=== PATIENT | female | born 1990 | race Caucasian/White ===

== ENCOUNTER 2020-09-18 13:32 | Inpatient (IN) | payer BC, SELFPAY ==
[2020-09-18] VITALS (10 sets, daily range): BP systolic 96–123; BP diastolic 49–81; PULSE 77–123; RESP 14–18; TEMP 36.4–39.4; O2SAT 94–100; BMI 24.3
--- NOTE | ~2020-09-18 | CT_ITS ---
EXAMINATION: CT soft tissue neck w con EXAM DATE: 09/18/2020 15:48 INDICATION: Sore throat, right neck swelling. TECHNIQUE: Spiral CT of the neck was performed following intravenous injection of 75 mL Omnipaque 350 . Axial, coronal and sagittal images were reviewed. The dose-length product (DLP) for this examinat ion was 425.17 mGy-cm. The exposure was tailored according to patient size (auto mA exposure control ), and iterative reconstruction (ASIR) was used as additional dose reduction technique. There is no prior study for comparison. FINDINGS: There is abnormal low density widening of the prevertebral soft tissue, normal fat plane fr om the C2 to the C5 level, most wide at 3 where low density region measures 1.1 AP by 2.8 transverse centimeters. No enhancing rim to this. The fat planes surrounding the carotid sheaths are also indist inct. No rim enhancement, no organized abscess but patient is at risk for developing retropharyngeal abscess. Asymmetric tonsils with the right being larger, edematous but also without drainable fluid c ollection. The epiglottis is normal in thickness. Carotid and jugular veins enhance as expected, no t hrombus. Thyroid, submandibular, parotid glands are unremarkable. Mild reactive cervical lymphadenopa thy. Lung apices are clear. IMPRESSION: Significantly widened prevertebral fat plane from fluid, edema without rim-enhancing drai nable organized abscess. Deep fascial plane and mild right tonsillar edema. No jugular venous thrombo sis or epiglottis thickening. If patient has infection clinically, consider IV antibiotics. I discussed these findings with Shelley Mcmullen MD at 09/18/2020 16:09 DELINQUENT TAX COLLECTION ASSISTANT. Reviewed, dictated and finalized at location A. NQUENT TAX COLLECTION ASSISTANT IMPRESSION: Significantly widened prevertebral fat plane from fluid, edema with out rim-enhancing drainable organized abscess. Deep fascial plane and mild righ t tonsillar edema. No jugular venous thrombosis or epiglottis thickening. If pa javi has infection clinically, consider IV antibiotics. I discussed these findings with Shelley Mcmullen MD at 09/18/2020 16:09 DELINQUENT TAX COLLECTION ASSISTANT.
--- NOTE | 2020-09-18 15:15 | ED.GENADULT ---
HPI - General Adult General Chief complaint: Skin/Abscess/Foreign Body Stated complaint: abcess on neck? Time Seen by Provider: 09/18/20 14:57 Source: patient History of Present Illness HPI narrative: Patient is a 30 y/o female complaining of sorethroat start 3 days ago. She describes her pain as a soreness and rates it as 7/10. Swallowing makes it worse. She also has some right neck swelling and cough. She was seen at an urgent care clinic 2 days ago and had negative strep, [place], flu and COVID test. She was given steroids which did not help with her symptoms. She developed fever today. She was seen by PCP and sent here for further evaluation. Related Data Home Medications Medication Instructions Recorded Confirmed No Home Medications 09/18/20 09/18/20 Allergies Allergy/AdvReac Type Severity Reaction Status Date / Time No Known Allergies Allergy Verified 09/18/20 18:44 Review of Systems Constitutional: Constitutional: Denies chills, Reports fever(s), Denies headache(s) and Denies weakness Eyes: Eyes: Denies blurry vision ENT: Denies headache(s), Reports neck mass, Denies neck pain and Reports sore throat Cardiovascular: Cardiovascular: Denies chest pain and Denies dyspnea Respiratory: Respiratory: Reports cough and Denies dyspnea Gastrointestinal: Gastrointestinal: Denies abdominal pain, Denies diarrhea, Denies nausea and Denies vomiting Genitourinary: Genitourinary: Denies hematuria and Denies dysuria Musculoskeletal: Musculoskeletal: Denies back pain and Denies neck pain Neurologic: Denies headache(s) and Denies weakness [facility] Past Medical History Medical History Anemia Genital warts Well woman exam with routine gynecological exam Family History Family History (Updated 09/18/20 @ 18:58 by Chadd Whitlock RN) Sibling Hypertension Mother Hypertension Social History Social History Smoking status: Never smoker Second hand tobacco smoke exposure: No Alcohol intake: current Drinks per week: 1 Substance use: never Gender identity (if verbalized by the patient): Female Spiritual care concerns: No Exam Const: General: no acute distress and well developed Orientation/consciousness: oriented to person, oriented to place, oriented to time and patient oriented x3 HENMT: Head: normocephalic Ears: external ears normal General nose exam: Normal external nose present Throat: posterior oropharynx abnormal edema and erythema Eyes: General: appearance normal, both eyes and all related structures Conjunctivae: conjunctivae normal Neck: Neck: normal visual inspection and full ROM Chest: Chest palpation & inspection: normal inspection of the chest and no tenderness Resp: Effort & Inspection: normal respiratory effort Auscultation: clear to auscultation bilaterally Cardio: Rate: tachycardic Rhythm: regular rhythm GI: GI Palp: No abdominal tenderness and Yes Soft to palpation Skin: General skin exam: normal color and turgor normal Neuro: General: oriented to person, oriented to place, oriented to time and patient oriented x3 Cognition (Neuro): normal cognition Extrem: General: normal to inspection, full ROM and no pedal edema Psych: Appearance: grossly normal Mental Status: mental status grossly normal Affect: normal affect Course Consultations Consultation #1: Discussed with Dr. Garcia, who agrees to consult. Date: 09/18/20 Time: 16:28 Consultation #2: Discussed with CHUCK David, who agrees to admit. Date: 09/18/20 Time: 16:50 Vital Signs Vital signs: Vital Signs Temperature 38.0 C H 09/18/20 14:19 Pulse Rate 123 H 09/18/20 14:19 Respiratory Rate 18 09/18/20 14:19 Blood Pressure 123/81 09/18/20 14:19 Pulse Oximetry 100 09/18/20 14:19 Temperature 36.4 C 09/18/20 20:00 Pulse Rate 83 09/18/20 20:00 Respiratory Rate 18 09/18/20 20:00 Blood Pre
[2020-09-18 15:34] LABS: Basophils Absolute Auto 0.1 K/mm3 (0.0-0.1); Basophils Percent Auto 0.4 % (0.2-1.2); Hematocrit 39.2 % (37.0-47.0); Hemoglobin 13.4 g/dL (12.0-15.0); Immature Granulocyte Absolute 0.05 K/mm3 (0.00-0.031); Immature Granulocyte Percent A 0.4 % (0-0.5); Lymphocytes Absolute Auto 0.61 K/mm3 (0.9-3.2); Mean Corpuscular HGB Conc 34.2 g/dl (32-36); Mean Corpuscular Hemoglobin 29.2 pg (26-34); Mean Corpuscular Volume 85.4 fl (80-100); Mean Platelet Volume 9.8 fl (7.4-10.4); Monocytes Absolute Auto 0.3 K/mm3 (0.1-0.6); Monocytes Percent Auto 2.3 % (2.6-8.5); Neutrophils Absolute Auto 11.2 K/mm3 (1.3-6.7); Neutrophils Percent Auto 91.9 % (45.5-73.1); Platelet Count Result 203 k/mm3 (150-375); Red Blood Count 4.59 M/mm3 (4.2-5.4); Red Cell Distribution Width 12.4 % (11.5-14.5); White Blood Count 12.2 K/mm3 (4.5-10.0)
[2020-09-18 15:39] LABS: Add Urine Microscopic? YES; Appearance Urine Clear (Clear); Bacteria Urine Trace /hpf; Bilirubin Urine Negative (Negative); Blood Urine 1+ (Negative); Color Urine Yellow (Yellow); Glucose Urine UA Negative (Negative); Ketones Urine Trace mg/dL (Negative); Leukocyte Esterase Ur Negative LEU/UL (Negative); Mucus Urine Rare /lpf; Nitrate Urine Negative (Negative); Protein Urine 2+ mg/dL (Negative); Specific Grav Ur 1.017 (1.001-1.035); Squamous Epithelial Cell Urine Few /hpf (Few); Urobilinogen Urine Negative mg/dL (<2.0)
[2020-09-18 15:43] LABS: Estimated CRCL calculation 77 ml/min; Estimated Glomerular Filt Rate > 60
[2020-09-18 15:45] LABS: Alanine Aminotransferase 23 U/L (4-35); Albumin Level 4.3 g/dL (3.5-5.1); Alkaline Phosphatase 55 U/L (38-126); Anion Gap 11 mmol/L (8-16); Aspartate Amino Transferase 37 U/L (14-36); Bilirubin,Total 0.8 mg/dL (0.2-1.3); Blood Urea Nitrogen 14 mg/dL (7-17); Carbon Dioxide 24 mmol/L (22-30); Chloride 99 mmol/L (98-107); Estimated CRCL calculation 77 ml/min; Estimated Glomerular Filt Rate > 60; Glucose 145 mg/dL (65-105); Potassium 3.6 mmol/L (3.4-5.0); Sodium 134 mmol/L (137-145)
[2020-09-18] MEDS: SODIUM CHLORIDE 0.9% IV 1,000 ML 999 ML IV CONT (15:50)
[2020-09-18 15:54] LABS: Monoscreen Negative (Negative); Negative Monotest Control Negative (Negative); Positive Monotest Control Positive (Positive)
[2020-09-18] MEDS: AMPICILLIN SULB 3 GM/NS 100 ML 3 GM/100 ML VIAL IVPB ×2 (17:01→23:47)
--- NOTE | 2020-09-18 17:42 | WPDCN ---
Assessment and Plan Assessment and plan (1) Neck infection: Code(s): L08.9 - Local infection of the skin and subcutaneous tissue, unspecified Status: Acute Assessment and Plan: My impression is that the patient suffers from a deep neck space infection, clinically as well as radiographically in the right peritonsillar space as well as retropharyngeal space. The symptoms, white count, and ct are not completely consistent with a bacterial agent as the driving/sole source. I've added the patient on for the OR for Friday. Please keep her npo overnight. Recommend q8h steroids and at least IV unasyn overnight. Will reassess in the am. Please do not hesitate to call me or text me -with any questions/concern. [phone]. HPI Data of Consult Date/Time: 09/18/20 17:42 Requesting Physician: Deanna Bernal MD Primary Care Provider: Lori Greco, Consult Narrative Narrative: Ofelia Suero is a 30 year old female who presents with several days of neck pain and fever as well overall malaise. Strep negative. Monospot negative. No treatment prior to today other than oral steroids. CT personally reviewed with retropharyngeal edema/fluid which is non loculated. The right peritonsillar space also has fat stranding and edema again without loculations/fluid collection. Right supraclavicular edema as well. No thrombi. The patient reports no difficulty breathing but does report some difficulty turning her head. White count 12, elevated neutrophils. Confounding factors include migrating edema, bilateral radiographic lymphadenopathy with largely right sided symptoms, the patient reporting improvement as well as some more concerning symptoms which have developed in the past 24 hours including feve.r Review of Systems Constitutional: Constitutional: Denies fatigue, Denies fever(s) and Denies lethargy Eyes: Eyes: Denies blurry vision and Denies change in vision ENT: Reports as per HPI Cardiovascular: Cardiovascular: Denies chest pain Respiratory: Respiratory: Denies cough Endocrine: Endocrine: Denies fatigue Hematologic/Lymphatic: Hematologic/Lymphatic: Denies easy bleeding, Denies easy bruising and Denies lymphadenopathy Allergic/Immunologic: Allergic/Immunologic: Denies seasonal rhinorrhea PMFSH Past Medical History Medical History Anemia Genital warts Well woman exam with routine gynecological exam Social History Social History Gender identity (if verbalized by the patient): Female Meds Home Medications and Allergies Home Medications Medication Instructions Recorded Confirmed Type prednisolone 0 mg PO PER PKG DIR 09/18/20 09/18/20 History Allergies Allergy/AdvReac Type Severity Reaction Status Date / Time NKDA Allergy Mild none Uncoded 09/18/20 14:27 Vital Signs Vital Signs - 24 hr 09/18/20 14:19 09/18/20 16:05 09/18/20 16:55 Temperature 38.0 C H 39.4 C H Pulse Rate 123 H 110 H 113 H Respiratory Rate 18 18 16 Blood Pressure 123/81 112/79 109/70 Pulse Oximetry 100 100 98 Exam Const: General: cooperative, healthy appearing, comfortable, well developed and alert HENMT: Head: normal to inspection, normocephalic and atraumatic Ears: hearing grossly normal bilaterally, external ears normal, TM's normal bilaterally and EAC's normal General nose exam: Normal external nose present, Normal nares present, No nasal polyps present, Normal nasal mucous membranes and turbinates present and Normal septum present Face and sinus: normal facial exam Mouth: Yes lip normal, Yes tongue normal and Yes moist mucous membranes Teeth and gingiva: dentition normal and gingiva normal Other: Bilateral palpable jugulodigastric lymphadenopathy, more so on right, painful palpable right supraclavicular edema, overall more edematous on the right, floor of mouth soft, right tonsillar edema/erythema, possi
[2020-09-18 18:11] LABS: Lactic Acid Reflex 0.8 mmol/L (0.7-2.1)
--- NOTE | 2020-09-18 18:26 | PC.NURSE ---
dr payne stated to give the pt 2 1L bags of LR EVEN THOUGH BISHNU SAID TO GIVE 1900MLS
--- NOTE | 2020-09-18 18:57 | ADMGEN ---
This patient, Ofelia Suero, was admitted to IMU Room 201-01 on 09-18-2020 at 1830. Patient/family oriented to hospital policies and general routines including ID bracelet, bed and alarms, visiting hours, pain management, procedures, bathroom and other care routines, personal items, smoking policy, room service/diet, and visiting hours. Information on how to activate the Rapid Response Team has been discussed. Patient/Family are encouraged to report perceived risks to care and to ask questions if they do not understand what they are told or what they should do.
[2020-09-18] MEDS: SODIUM CHLORIDE 0.9% IV 1,000 ML 125 ML IV CONT (20:20)
[2020-09-19] VITALS (12 sets, daily range): BP systolic 98–112; BP diastolic 62–81; PULSE 77–107; RESP 14–22; TEMP 36.4–38.2; O2SAT 93–100
[2020-09-19] MEDS: HYDROmorphone HCL INJ (*CRX) 1 MG/ML SYR 0.5 MG IV PUSH ×3 (02:19→15:44)
--- NOTE | 2020-09-19 04:08 | PM.IMHP ---
H&P: HPI History of Present Illness Date/Time: 09/19/20 04:08 Chief Complaint: Neck swelling and sore throat for 3 days Narrative: This is a 30 year old female who presented to the hospital with a complaint of a right sided neck swelling and a sore throat. She started to have a sore throat 3 days ago. She was seen at the urgent care two days ago and had a rapid strep test, mono, and covid which were all negative. She was treated with steroids and today developed a fever. She was referred to the ER by her PCP. She has developed worsening right neck swelling and sporadic cough since this started. Her right neck swelling is tender. CT Neck was obtained which demonstrated significantly widened prevertebral fat plane from fluid, edema without rim-enhancing drainable organized abscess. Deep fascial plane and mild right tonsillar edema. No jugular venous thrombosis or epiglottis thickening. ENT, Dr. Garcia was consulted by ER provider and believes that the patient may be developing an abscess. IV ancef was started and we were asked to admit her to the hospital and prepare her for the OR tomorrow for possible incision and drainage. The patient denies any headache, nausea, vomiting, abdominal pain, chest pain, palpitations, shortness of breath, dysuria, or other wounds. Review of Systems Review of Systems: All systems reviewed & are unremarkable except as noted in HPI and below PMFSH Past Medical History Medical History Anemia Genital warts Well woman exam with routine gynecological exam Family History Family History Sibling Hypertension Mother Hypertension Social History Social History Smoking status: Never smoker Second hand tobacco smoke exposure: No Alcohol intake: current Drinks per week: 1 Substance use: never Gender identity (if verbalized by the patient): Female Spiritual care concerns: No Comments past surgical history is reviewed and noncontributory. Meds Home Medications and Allergies Home Medications Medication Instructions Recorded Confirmed Type No Home Medications 09/18/20 09/18/20 History Allergies Allergy/AdvReac Type Severity Reaction Status Date / Time No Known Allergies Allergy Verified 09/18/20 18:44 Vital Signs Vital Signs - 24 hr 09/18/20 14:19 09/18/20 16:05 09/18/20 16:55 Temperature 38.0 C H 39.4 C H Pulse Rate 123 H 110 H 113 H Respiratory Rate 18 18 16 Blood Pressure 123/81 112/79 109/70 Pulse Oximetry 100 100 98 09/18/20 17:59 09/18/20 18:28 09/18/20 18:45 Temperature 37.6 C 37.2 C Pulse Rate 98 87 Respiratory Rate 16 14 Blood Pressure 108/62 109/64 Pulse Oximetry 99 98 09/18/20 20:00 09/18/20 23:09 09/18/20 23:30 Temperature 36.4 C 36.6 C Pulse Rate 80 77 83 Respiratory Rate 18 18 Blood Pressure 98/49 L 96/55 L Pulse Oximetry 94 97 09/18/20 23:59 09/19/20 00:00 09/19/20 02:00 Temperature Pulse Rate 91 86 93 Respiratory Rate 18 Blood Pressure Pulse Oximetry Exam Const: General: cooperative, no acute distress, alert and awake Nutritional Appearance: well nourished Orientation/consciousness: patient oriented x3 HENMT: Head: normal to inspection General nose exam: Normal external nose present Face and sinus: normal facial exam Mouth: Yes Normal oral and palatal mucosa present and Yes other (Right sided tonsillar erythema and edema++ ) Eyes: Pupils: Equal, round and reactive pupils present EOM: EOMs intact bilaterally Neck: Neck: lymphadenopathy (supraclavicular b/l), no JVD and other (Right sided neck swelling, right neck tenderness to palpation+ ) Thyroid: thyroid normal Lymphatic: lymphadenopathy (Axillary++ ) Resp: Effort & Inspection: normal respiratory effort Auscultation: clear to auscultation bilaterally Cardio: Rate: regular
[2020-09-19] MEDS: SODIUM CHLORIDE 0.9% IV 1,000 ML 125 ML IV CONT (04:44)
[2020-09-19 05:12] LABS: Hematocrit 34.6 % (37.0-47.0); Hemoglobin 11.4 g/dL (12.0-15.0); Mean Corpuscular HGB Conc 32.9 g/dl (32-36); Mean Corpuscular Hemoglobin 28.2 pg (26-34); Mean Corpuscular Volume 85.6 fl (80-100); Mean Platelet Volume 10.6 fl (7.4-10.4); Platelet Count Result 195 k/mm3 (150-375); Red Blood Count 4.04 M/mm3 (4.2-5.4); Red Cell Distribution Width 12.4 % (11.5-14.5); White Blood Count 11.1 K/mm3 (4.5-10.0)
[2020-09-19 05:29] LABS: Anion Gap 3 mmol/L (8-16); Blood Urea Nitrogen 14 mg/dL (7-17); Calcium 7.8 mg/dL (8.4-10.2); Carbon Dioxide 25 mmol/L (22-30); Chloride 107 mmol/L (98-107); Estimated CRCL calculation 100 ml/min; Estimated Glomerular Filt Rate > 60; Glucose 150 mg/dL (65-105); Magnesium 2.1 mg/dL (1.6-2.3); Potassium 3.9 mmol/L (3.4-5.0); Sodium 135 mmol/L (137-145)
[2020-09-19] MEDS: AMPICILLIN SULB 3 GM/NS 100 ML 3 GM/100 ML VIAL IVPB ×2 (06:18→12:14)
[2020-09-19] MEDS: LACTATED RINGERS 1,000 ML 30 ML IV CONT (07:55)
--- NOTE | 2020-09-19 08:34 | PM.IMHP ---
H&P: HPI History of Present Illness Date/Time: 09/19/20 08:34 Chief Complaint: Tonsillitis, peritonsillar abscess, retropharyngeal abscess, Neck infection Narrative: Ofelia Suero is a 30 year old female who presents for planned surgical procedure. Overall patient feels slightly improved from yesterday's examination. No changes in medical history since yesterday. Review of Systems Constitutional: Constitutional: Denies fatigue, Denies fever(s) and Denies lethargy Eyes: Eyes: Denies blurry vision and Denies change in vision ENT: Reports as per HPI Cardiovascular: Cardiovascular: Denies chest pain Respiratory: Respiratory: Denies cough Endocrine: Endocrine: Denies fatigue Hematologic/Lymphatic: Hematologic/Lymphatic: Denies easy bleeding, Denies easy bruising and Denies lymphadenopathy Allergic/Immunologic: Allergic/Immunologic: Denies seasonal rhinorrhea PMFSH Past Medical History Medical History Anemia Genital warts Well woman exam with routine gynecological exam Family History Family History Sibling Hypertension Mother Hypertension Social History Social History Smoking status: Never smoker Second hand tobacco smoke exposure: No Alcohol intake: current Drinks per week: 1 Substance use: never Gender identity (if verbalized by the patient): Female Spiritual care concerns: No Meds Home Medications and Allergies Home Medications Medication Instructions Recorded Confirmed Type No Home Medications 09/18/20 09/18/20 History Allergies Allergy/AdvReac Type Severity Reaction Status Date / Time No Known Allergies Allergy Verified 09/18/20 18:44 Vital Signs Vital Signs - 24 hr 09/18/20 14:19 09/18/20 16:05 09/18/20 16:55 Temperature 38.0 C H 39.4 C H Pulse Rate 123 H 110 H 113 H Respiratory Rate 18 18 16 Blood Pressure 123/81 112/79 109/70 Pulse Oximetry 100 100 98 09/18/20 17:59 09/18/20 18:28 09/18/20 18:45 Temperature 37.6 C 37.2 C Pulse Rate 98 87 Respiratory Rate 16 14 Blood Pressure 108/62 109/64 Pulse Oximetry 99 98 09/18/20 20:00 09/18/20 23:09 09/18/20 23:30 Temperature 36.4 C 36.6 C Pulse Rate 80 77 83 Respiratory Rate 18 18 Blood Pressure 98/49 L 96/55 L Pulse Oximetry 94 97 09/18/20 23:59 09/19/20 00:00 09/19/20 02:00 Temperature Pulse Rate 91 86 93 Respiratory Rate 18 Blood Pressure Pulse Oximetry 09/19/20 04:00 09/19/20 06:00 Temperature 36.7 C Pulse Rate 94 102 H Respiratory Rate 22 H Blood Pressure 112/66 Pulse Oximetry 93 Exam Const: General: cooperative, healthy appearing, comfortable, well developed and alert HENMT: Head: normal to inspection, normocephalic and atraumatic Ears: hearing grossly normal bilaterally, external ears normal, TM's normal bilaterally and EAC's normal General nose exam: Normal external nose present, Normal nares present, No nasal polyps present, Normal nasal mucous membranes and turbinates present and Normal septum present Face and sinus: normal facial exam Mouth: Yes Normal oral and palatal mucosa present, Yes lip normal, Yes tongue normal, No oropharynx normal and Yes moist mucous membranes Teeth and gingiva: dentition normal and gingiva normal Throat: posterior oropharynx abnormal, tonisls abnormal and uvula not midline Other: Persistent right-sided tonsillar edema erythema exudates persistent right-sided peritonsillar edema persistent right-sided neck edema albeit improved from yesterday's examination mild or pharyngeal posterior fullness Eyes: General: appearance normal, both eyes and all related structures Periorbital: periorbital findings normal Eyelids: eyelids normal Conjunctivae: conjunctivae normal Sclera: sclerae normal Neck: Neck: not normal to visual inspection, limited ROM and lymphadenopathy n
--- NOTE | 2020-09-19 08:38 | WPDHPUPDATE1 ---
History and Physical Update Update Date/Time: 09/19/20 08:38 History and Physical has been reviewed, including an updated exam of the patient. There are NO changes in the patient's condition. Risks, benefits, and alternatives have been discussed and questions answered. Patient agrees to proceed with procedure.
--- NOTE | 2020-09-19 08:46 | WPDANESEPPF ---
Anes - Initial Pre Proc Eval Procedure: Operation Date: 09/19/20 09:00 Proposed Procedures p Transoral Incision And Drainage Sarahi-Tonsil Abscess - Perry Garcia MD Date/Time: 09/19/20 08:46 Surgeon: Deanna Bernal MD Pre Op Diagnosis: soft tissue neck infection Patient Data Age: 30 Gender: F Height: 5 ft 4 in Weight: 64 kg Last Vital Signs Temp 36.7 C 09/19/20 04:00 Pulse 102 H 09/19/20 06:00 Resp 22 H 09/19/20 04:00 BP 112/66 09/19/20 04:00 Pulse Ox 93 09/19/20 04:00 Allergies Allergy/AdvReac Type Severity Reaction Status Date / Time No Known Allergies Allergy Verified 09/18/20 18:44 Home Medications Medication Instructions Recorded Confirmed Type No Home Medications 09/18/20 09/18/20 History Laboratory Tests 09/18/20 09/18/20 09/18/20 15:27 15:27 15:27 WBC 12.2 K/mm3 H K/mm3 (4.5-10.0) RBC 4.59 M/mm3 M/mm3 (4.2-5.4) Hgb 13.4 g/dL g/dL (12.0-15.0) Hct 39.2 % % (37.0-47.0) MCV 85.4 fl fl (80-100) MCH 29.2 pg pg (26-34) MCHC 34.2 g/dl g/dl (32-36) RDW 12.4 % % (11.5-14.5) Plt Count 203 k/mm3 k/mm3 (150-375) MPV 9.8 fl fl (7.4-10.4) Immature Gran % (Auto) 0.4 % % (0-0.5) Neut % (Auto) 91.9 % H % (45.5-73.1) Lymph % (Auto) 5.0 % L % (18.3-44.2) Marshall % (Auto) 2.3 % L % (2.6-8.5) Eos % (Auto) 0.0 % % (0-4.4) Baso % (Auto) 0.4 % % (0.2-1.2) Lymph # (Auto) 0.61 K/mm3 L K/mm3 (0.9-3.2) Marshall # (Auto) 0.3 K/mm3 K/mm3 (0.1-0.6) Eos # (Auto) 0.0 K/mm3 K/mm3 (0-0.3) Baso # (Auto) 0.1 K/mm3 K/mm3 (0.0-0.1) Abs Immat Gran (auto) 0.05 K/mm3 H K/mm3 (0.00-0.031) Absolute Neuts (auto) 11.2 K/mm3 H K/mm3 (1.3-6.7) Absolute Nucleated RBC 0.0 K/mm3 K/mm3 (0.0-0.012) Nucleated RBC % 0.0 % % (0.0-0.2) Sodium 134 mmol/L L mmol/L (137-145) Potassium 3.6 mmol/L mmol/L (3.4-5.0) Chloride 99 mmol/L mmol/L (98-107) Carbon Dioxide 24 mmol/L mmol/L (22-30) Anion Gap 11 mmol/L mmol/L (8-16) BUN 14 mg/dL mg/dL (7-17) Creatinine 0.80 mg/dL mg/dL (0.7-1.0) Estim Creat Clear Calc 77 ml/min ml/min Estimated GFR > 60 (59 - ) Glucose 145 mg/dL H mg/dL (65-105) Lactic Acid Calcium 9.0 mg/dL mg/dL (8.4-10.2) Magnesium Total Bilirubin 0.8 mg/dL mg/dL (0.2-1.3) AST 37 U/L H U/L (14-36) ALT 23 U/L U/L (4-35) Alkaline Phosphatase 55 U/L U/L (38-126) Total Protein 8.0 g/dL g/dL (6.3-8.2) Albumin 4.3 g/dL g/dL (3.5-5.1) Urine Color Yellow (Yellow) Urine Appearance Clear (Clear) Urine pH 6.0 (5.0-9.0) Ur Specific [place] 1.017 (1.001-1.035) Urine Protein 2+ mg/dL H mg/dL (Negative) Urine Glucose (UA) Negative mg/dL mg/dL (Negative) Urine Ketones Trace mg/dL mg/dL (Negative) Ur Blood (Man) 1+ H (Negative) Urine Nitrate Negative (Negative) Urine Bilirubin Negative (Negative) Urine Urobilinogen Negative mg/dL mg/dL (<2.0) Leukocyte Esterase Rfl Negative BARRETT/UL BARRETT/UL (Negative) Urine RBC 3-5 /hpf H /hpf (0-2) Urine WBC 4-6 /hpf H /hpf Ur Squamous Epith Cells Few /hpf /hpf (Few) Urine Bacteria Trace /hpf /hpf Hyaline Casts 1-2 /lpf /lpf (None) Urine Mucus Rare /lpf /lpf Monoscreen 09/18/20 09/18/20 09/18/20 15:27 15:41 17:53 WBC RBC Hgb Hct MCV MCH MCHC RDW Plt Count MPV
[2020-09-19] MEDS: SCOPOLAMINE 1.5 MG PATCH TRANSDERM (08:50)
[2020-09-19] MEDS: fentaNYL CITRATE INJ (*CRX) 100 MCG/2 ML VIAL 25 MCG IV PUSH ×2 (09:45→09:48)
--- NOTE | 2020-09-19 09:47 | P.OP_ITS ---
Procedure Note - Detailed Date of procedure: 09/19/20 Pre-op diagnosis: soft tissue neck infection Tonsillitis Retropharyngeal abscess Post-op diagnosis: same Procedure performed: 1. Tonsillectomy 2. Trans oral I and D of retropharyngeal abscess Description of procedure: The patient was correctly identified and consent was verified in the preoperative holding area. The patient was then brought to the operating room and a time-out was performed. General anesthesia was induced and endotracheal tube was secured the patient's airway in the midline. Bed was then rotated. The patient was prepped and draped for the aforementioned procedures. McIvor mouth gag was placed in the oral cavity revealing the tonsils which were 2+ erythematous edematous and the right with exudates. The right was grasped with a curved Allis and dissected in extracapsular plane with Bovie electrocautery at a setting of 12. Hemostasis was achieved using suction Bovie at a setting of 15. Dishwater type fluid was noted in the right peritonsillar space. A similar procedure was performed on the left side with no dishwater fluid. These were sent for pathologic analysis. Again hemostasis was noted to be excellent. The Bovie was utilized to dissect transorally with a posterior oropharynx in the retropharyngeal space blunt dissection was used to widely expose the space again scant dishwater fluid was noted. Hemostasis was adeq uate. This marked the end of the procedure. Care of the patient was turned over to Anesthesiology. The McIvor mouth gag was then removed. Anesthesia: GLMA Surgeon: Perry Garcia MD Estimated blood loss (mL): 10 Pathology: yes Complications: No immediate complications Condition: stable Disposition: PACU
--- NOTE | 2020-09-19 09:50 | PM.PNGS ---
Progress Note: A&P Assessment and Plan (1) Retropharyngeal abscess: Code(s): J39.0 - Retropharyngeal and parapharyngeal abscess Status: Acute Assessment and Plan: From an otolaryngologic standpoint the patient is okay for discharge once stable/improving clinically and able to tolerate liquids. Recommend follow-up in 2 weeks with ENT. Recommend a 7 day course of Augmentin 875/125 b.i.d., and narcotic pain medicine on discharge. Please call with any questions and/or concerns. For [phone]. Earliest recommended discharge would be this evening, and very reasonable to keep overnight should the patient not feel improved, clinically worsen, or not be able to tolerate liquids. (2) Peritonsillar abscess: Code(s): J36 - Peritonsillar abscess Status: Acute (3) Tonsillitis: Code(s): J03.90 - Acute tonsillitis, unspecified Status: Acute (4) Neck infection: Code(s): L08.9 - Local infection of the skin and subcutaneous tissue, unspecified Status: Acute Subjective Subjective Date/Time Seen: 09/19/20 09:50 Objective Data Vital Signs Vital Signs: Vital Signs - 24 hr 09/18/20 14:19 09/18/20 16:05 09/18/20 16:55 Temperature 38.0 C H 39.4 C H Pulse Rate 123 H 110 H 113 H Respiratory Rate 18 18 16 Blood Pressure 123/81 112/79 109/70 Pulse Oximetry 100 100 98 09/18/20 17:59 09/18/20 18:28 09/18/20 18:45 Temperature 37.6 C 37.2 C Pulse Rate 98 87 Respiratory Rate 16 14 Blood Pressure 108/62 109/64 Pulse Oximetry 99 98 09/18/20 20:00 09/18/20 23:09 09/18/20 23:30 Temperature 36.4 C 36.6 C Pulse Rate 80 77 83 Respiratory Rate 18 18 Blood Pressure 98/49 L 96/55 L Pulse Oximetry 94 97 09/18/20 23:59 09/19/20 00:00 09/19/20 02:00 Temperature Pulse Rate 91 86 93 Respiratory Rate 18 Blood Pressure Pulse Oximetry 09/19/20 04:00 09/19/20 06:00 Temperature 36.7 C Pulse Rate 94 102 H Respiratory Rate 22 H Blood Pressure 112/66 Pulse Oximetry 93 Intake/Output Intake/Output: Intake & Output 09/16/20 09/17/20 09/18/20 09/19/20 23:59 23:59 23:59 23:59 Intake Total 2200 1265 Output Total 600 Balance 2200 665 Meds/Results Medications: Active Medications Generic Name Dose Route Start Last Admin Trade Name Freq PRN Reason Stop Dose Admin Dexamethasone Sodium Phosphate 10 mg 09/19/20 00:00 09/18/20 23:44 Dexamethasone Sod Phos Inj 10 Mg/Ml 1 Ml Vial IV PUSH 10 mg Q8H QUIN Administration Fentanyl Citrate 25 mcg 09/19/20 08:47 09/19/20 09:48 Fentanyl Citrate Inj (*Crx) 100 Mcg/2 Ml Vial IV PUSH 25 mcg Q2M PRN Administration Pain Hydromorphone HCl 0.5 mg 09/19/20 02:02 09/19/20 06:18 Hydromorphone Hcl Inj (*Crx) 1 Mg/Ml Syr IV PUSH 09/20/20 07:00 0.5 mg Q4H PRN Administration Pain Rated 7-10 Ampicillin Sodium/Sulbactam Sodium 3 gm in 100 mls @ 200 mls/hr 09/19/20 00:00 09/19/20 06:48 Unasyn 3 Gm/Ns 100 Ml IVPB Infused Q6H QUIN Infusion Acetaminophen 650 mg in 65 mls @ 260 mls/hr 09/18/20 17:05 09/19/20 09:34 Ofirmev 650 Mg Ivpb IVPB 09/19/20 17:06 Infused Q6H PRN Infusion Mild Pain (1-3) or Fever Sodium Chloride 1,000 mls @ 125 mls/hr 09/18/20 17:05 09/19/20 07:51 Normal Saline Iv IV CONT Not Given .Q8H QUIN Lactated Ringer's 1,000 mls @ 30 mls/hr 09/19/20 08:50 Lr - Lactated Ringers Iv IV CONT .Q24H QUIN Lactated Ringer's 1,000 mls @ 30 mls/hr 09/19/20 08:50 09/19/20 09:37 Lr - Lactated Ringers Iv IV CONT 30 mls/hr .Q24H QUIN Infusion Ondansetron HCl 4 mg 09/19/20 02:03 Ondansetron Inj 4 Mg/2 Ml Vial IV PUSH 09/19/20 11:00 Q6H PRN Nausea And Vomiting Ondansetron HCl 4 mg 09/19/20 08:47 Ondansetron Inj 4 Mg/2 Ml Vial IV PUSH ONCE PRN Nausea Oxycodone HCl 5 mg 09/19/20 08:47 Oxycodone (*Crx) 5 Mg/5 Ml Oral Soln Ir PO ONCE PRN Pain Radiology Results: ITS Impressi
--- NOTE | 2020-09-19 13:26 | PM.DS ---
DS: Admitting Diagnosis Admitting Diagnosis Admitting Diagnosis: Chief Complaint: Tonsillitis, peritonsillar abscess, retropharyngeal abscess, Neck infection DS: Discharge Diagnosis Discharge Diagnosis (1) Neck infection: Code(s): L08.9 - Local infection of the skin and subcutaneous tissue, unspecified Status: Acute Assessment and Plan: Continue IV antibiotics. Pain control as needed w/ IV narcotic medications. Blood cultures pending. Monitor vital signs. ENT has been consulted by ER provider and will evaluate the patient for possible incision and draining in am. (2) Tonsillitis: Code(s): J03.90 - Acute tonsillitis, unspecified Status: Acute Assessment and Plan: NPO overnight. throat culture pending. Continue steroid therapy. Continue ENT recommendations. (3) Sepsis: Qualifiers: Sepsis acute organ dysfunction status: unspecified Sepsis type: sepsis due to unspecified organism Qualified Code(s): A41.9 - Sepsis, unspecified organism Code(s): A41.9 - Sepsis, unspecified organism Status: Acute Assessment and Plan: Source of sepsis appears to be secondary to tonsillitis. Continue IV antibiotics. Continue IV fluids. Monitor vital signs. DS: Summary Hospital Course Reason for hospitalization: Chief Complaint: Tonsillitis, peritonsillar abscess, retropharyngeal abscess, Neck infection Narrative: Ofelia Suero is a 30 year old female who presents for planned surgical procedure. Overall patient feels slightly improved from yesterday's examination. No changes in medical history since yesterday. Hospital Course: Patient was seen by ENT and had tonsillectomy and drained abscess, patient was seen by the ENT post op and recommended to discharge the patient on oral abx and pain medication, patient is clinically stable, and wants to go home, will discharge today. Status at Discharge Functional status at discharge: independent ambulation Overall status at discharge: patient is back to baseline Time Spent with Patient Time attestation: Total time spent providing and/or coordinating discharge services: Patient was seen and examined at the time of the discharge Condition at discharge is stable Code status: Full code. Time spent preparing discharge summary, discharge medications, discussing discharge planning with continuous pillowcase cutter and patient is 30 minutes. Time spent: Less than 30 minutes Exam Narrative: Exam Narrative: Patient is comfortable, NAD HEENT: eyes are clear and none icteric LUNGS:CTA HEART: RR S1S2 ABD: BS+, Soft and nontender Lower extremities: no edema SKIN: nonjaundiced Neuro: grossly intact. DS: Data Data Completed and Pending Pending studies at discharge: Pending at discharge 09/19/20 09:11 Surgical [PTH] Routine Labs on day of discharge: Labs from last 24 hours 09/19/20 09/19/20 09/18/20 04:26 04:26 17:53 WBC 11.1 H RBC 4.04 L Hgb 11.4 L Hct 34.6 L MCV 85.6 MCH 28.2 MCHC 32.9 RDW 12.4 Plt Count 195 MPV 10.6 H Immature Gran % (Auto) Neut % (Auto) Lymph % (Auto) [place] % (Auto) Eos % (Auto) Baso % (Auto) Lymph # (Auto) [place] # (Auto) Eos # (Auto) Baso # (Auto) Abs Immat Gran (auto) Absolute Neuts (auto) Absolute Nucleated RBC Nucleated RBC % Sodium 135 L Potassium 3.9 Chloride 107 Carbon Dioxide 25 Anion Gap 3 L BUN 14 Creatinine 0.60 L Estim Creat Clear Calc 100 Estimated GFR > 60 Glucose 150 H Lactic Acid 0.8 Calcium 7.8 L Magnesium 2.1 Total Bilirubin AST ALT Alkaline Phosphatase Total Protein Albumin Urine Color Urine Appearance Urine pH Ur Specific [place] Urine Protein Urine Glucose (UA) Urine Ketones Ur Blood (Man) Urine Nitrate Urine Bilirubin Urine Urobilinogen Leukocyte Esterase Rfl Urine RBC Urine WBC Ur Squamous Epith Susannah
== END 2020-09-19 16:51 | disposition home or self-care (01) | DRG 854 ==
LOC: ANHED 14:57 → ANHIMU 17:45
PROVIDERS: Family Medicine; Otolaryngology; Admitting Provider Family Medicine; Emergency Provider Emergency Medicine; PCP Family Medicine; Visit Provider Family Medicine
PROC: 0CTPXZZ Resection of Tonsils, External Approach (ICD-10-PCS; principal; 2020-09-19 09:00)
DX: A41.9 Sepsis, unspecified organism; J39.0 Retropharyngeal and parapharyngeal abscess; J03.90 Acute tonsillitis, unspecified; L08.9 Local infection of the skin and subcutaneous tissue, unspecified
CPT/HCPCS: 36415; 70491; 80048; 80053; 81001; 81025; 83605; 83735; 85025; 85027; 86308; 87040; 87077; 87081; 87186; 87880; 88302; 96374; 96375; 99285; A9270; J0131; J0295; J0330; J1100; J1170; J2250; J2270; J2405; J2704; J2710; J3010; J7030; J7120; Q9967

== ENCOUNTER 2020-09-20 10:00 | Inpatient (IN) | payer BC, SELFPAY ==
[2020-09-20] VITALS (19 sets, daily range): BP systolic 99–115; BP diastolic 68–79; PULSE 63–82; RESP 16–37; TEMP 36.3–37.2; O2SAT 93–100; BMI 24.5
--- NOTE | ~2020-09-20 | XR_ITS ---
EXAMINATION: XR chest 1V portable DATE: 09/20/2020 10:43 INDICATION: Fever. TECHNIQUE: A single frontal view of the chest was obtained. COMPARISON: None. FINDINGS: The chest demonstrates clear lungs without pneumonia, pleural effusion, or pneumothorax. Th e heart size is normal. IMPRESSION: 1. No acute cardiopulmonary disease. Reviewed, dictated and finalized at location A. CREW SUPERVISOR
--- NOTE | ~2020-09-20 | CT_ITS ---
EXAMINATION: CT soft tiss nk chst ab pel w DATE: 09/20/2020 11:44 INDICATION: Fever. Abnormal liver function tests. TECHNIQUE: Computed tomography (CT) of the neck, chest, abdomen, and pelvis was performed with 100 mL Omnipaque 350 intravenous contrast. Automated exposure control and iterative reconstruction techniqu e were employed. The dose-length product was 1274.16 mGy-cm. COMPARISON: Neck CT 09/18/2020 FINDINGS: CT NECK: There is mucosal thickening in the nasopharynx, oropharynx, and hypopharynx. There is a smal l retropharyngeal effusion. There is gas in the left parapharyngeal fat and left fire manager space, co nsistent with recent surgery. The right jugular digastric node is mildly enlarged and measures 13 x 2 0 mm. There is edema in the right supraclavicular region. There is mild cervical spondylosis. CT CHEST: The lungs demonstrate minimal atelectasis. There are trace right and small left pleural eff usions. The heart size is normal. No pericardial effusion. There is mild thoracic spondylosis. CT ABDOMEN AND PELVIS: The liver, spleen, pancreas, adrenal glands, and kidneys are normal. There are no dilated loops of bowel. The appendix is normal. There is a small volume of pelvic ascites. There are no pathologically enlarged lymph nodes. The bones are unremarkable. IMPRESSION: 1. Mucosal thickening in the pharynx. Foci of gas in the left parapharyngeal and fire manager space fat , likely from recent surgery. Improved small retropharyngeal effusion. 2. Mildly enlarged high right internal jugular chain lymph node, likely reactive. 3. Small left pleural effusion. 4. Small volume of ascites. Reviewed, dictated and finalized at location A. RVISOR DIALS IMPRESSION: 1. Mucosal thickening in the pharynx. Foci of gas in the left parapharyngeal an d fire manager space fat, likely from recent surgery. Improved small retropharyng eal effusion. 2. Mildly enlarged high right internal jugular chain lymph node, likely reactiv e. 3. Small left pleural effusion. 4. Small volume of ascites.
--- NOTE | ~2020-09-20 | US_ITS ---
EXAMINATION: US venous doppler UE RT EXAM DATE: 09/21/2020 09:44 INDICATION: Right Arm edema, numbness. TECHNIQUE: Multiple grayscale, color flow, Doppler sonographic images of the right upper extremity ve ins obtained by technologist. Compression was performed where able. There is no prior study for treva caballero. FINDINGS: Right upper extremity: Jugular vein: ------------> Normal. Subclavian vein: --------> Normal. Axillary vein:------------> Normal. Brachial vein:-----------> Normal. Basilic vein: ------------> Normal. Cephalic vein: ----------> Normal. Radial vein: ------------> Normal. Ulnar vein: > Normal. IMPRESSION: No deep venous thrombosis of the right upper extremity. Reviewed, dictated and finalized at location A. SWARE FINISHER
--- NOTE | ~2020-09-20 | US_ITS ---
EXAMINATION: US abdomen limited DATE: 09/22/2020 09:37 INDICATION: Abnormal liver function tests. TECHNIQUE: Multiple grayscale and Doppler ultrasound images of the abdomen were obtained. COMPARISON: CT abdomen and pelvis 09/20/2020 FINDINGS: The visualized portions of the head and body of the pancreas are normal. The liver is will l without focal lesion. No liver surface nodularity. There is normal flow in main portal vein. The ga llbladder is normal in size. No gallstones or gallbladder wall thickening. There was no sonographic M urphy sign. The common duct is normal and measures 4 mm. IMPRESSION: 1. Normal right upper quadrant ultrasound. Reviewed, dictated and finalized at location A. RAL MANAGER
--- NOTE | 2020-09-20 10:25 | ED.FEVER ---
HPI - Fever General Chief Complaint: Fever Stated Complaint: post op fever Time Seen by Provider: 09/20/20 10:18 History of Present Illness HPI Narrative: She was admitted the hospital a few days ago with a fever and sore throat. She had tonsillectomy performed yesterday and was discharged. Since discharge she has continued to have a significant amount of pain. She feels as though her throat is very swollen and it is hard to breath. This morning she felt like she had a fever and her temp was 99.7. She got a call this morning say that her blood culture was positive and she should come back to the hospital. On chart review her blood culture was preliminarily positive for gram + cocci in clusters. Throat culture grew group A strep. I discussed her care with Dr. Garcia. He suggested CT and changing her antibiotics. Related Data Allergies Allergy/AdvReac Type Severity Reaction Status Date / Time No Known Allergies Allergy Verified 09/20/20 10:09 Review of Systems Review of Systems: All systems reviewed & are unremarkable except as noted in HPI and below Constitutional: Constitutional: Reports chills and Reports fever(s) ENT: Reports sore throat Cardiovascular: Cardiovascular: Denies chest pain Respiratory: Respiratory: Denies dyspnea Gastrointestinal: Gastrointestinal: Denies abdominal pain, Denies diarrhea and Reports nausea Genitourinary: Genitourinary: Denies hematuria and Denies dysuria Neurologic: Reports weakness PMFSH Past Medical History Medical History Anemia Genital warts Well woman exam with routine gynecological exam Family History Family History Sibling Hypertension Mother Hypertension Social History Social History Smoking status: Never smoker Second hand tobacco smoke exposure: No Alcohol intake: current Drinks per week: 1 Substance use: never Gender identity (if verbalized by the patient): Female Spiritual care concerns: No Exam Const: General: alert Orientation/consciousness: patient oriented x3 HENMT: Throat: posterior oropharynx abnormal erythema and exudates Eyes: Pupils: Equal, round and reactive pupils present Resp: Effort & Inspection: normal respiratory effort Auscultation: clear to auscultation bilaterally Cardio: Rate: regular rate Rhythm: regular rhythm GI: GI Palp: Yes Soft to palpation and No Tenderness to palpation present (GI) Skin: General skin exam: normal color Neuro: General: patient oriented x3, moves all extremities, no focal motor deficits and CN's II-XI intact bilaterally Extrem: General: normal to inspection Course Vital Signs Vital signs: Vital Signs Temperature 37.2 C 09/20/20 10:04 Pulse Rate 82 09/20/20 10:04 Respiratory Rate 18 09/20/20 10:04 Blood Pressure 103/79 09/20/20 10:04 Pulse Oximetry 99 09/20/20 10:04 Temperature 37.2 C 09/20/20 10:04 Pulse Rate 81 09/20/20 13:30 Respiratory Rate 21 H 09/20/20 13:30 Blood Pressure 102/69 09/20/20 12:30 Pulse Oximetry 95 09/20/20 13:30 MDM - Fever MDM Narrative Medical decision making narrative: Nothing acute on CT. Mild leukocytosis. I discussed findings with her and she does not feel comfortable going home. Differential Diagnosis Differential diagnosis: Likely community acquired pneumonia, sepsis and other (bacteremia) Medical Records Attestation: I reviewed the patient's medical records. Lab Data Attestation: I reviewed the patient's lab results. Lab results narrative: moderate elevation of liver enzymes Result diagrams: 09/20/20 10:34 09/20/20 10:34 Labs: Lab Results 09/20/20 09/20/20 09/20/20 Range/Units 10:34 10:34 10:34 WBC 13.4 H (4.5-10.0) K/mm3 RBC 4.19 L (4.2-5.4) M/mm3 Hgb 12.2 (12.0-15.0) g/dL Hct 35.9
[2020-09-20 10:46] LABS: Basophils Percent Auto 0.2 % (0.2-1.2); Hematocrit 35.9 % (37.0-47.0); Hemoglobin 12.2 g/dL (12.0-15.0); Immature Granulocyte Absolute 0.09 K/mm3 (0.00-0.031); Immature Granulocyte Percent A 0.7 % (0-0.5); Lymphocytes Absolute Auto 0.87 K/mm3 (0.9-3.2); Lymphocytes Percent Auto 6.5 % (18.3-44.2); Mean Corpuscular Hemoglobin 29.1 pg (26-34); Mean Corpuscular Volume 85.7 fl (80-100); Mean Platelet Volume 10.5 fl (7.4-10.4); Monocytes Absolute Auto 0.6 K/mm3 (0.1-0.6); Monocytes Percent Auto 4.8 % (2.6-8.5); Neutrophils Absolute Auto 11.8 K/mm3 (1.3-6.7); Neutrophils Percent Auto 87.8 % (45.5-73.1); Platelet Count Result 234 k/mm3 (150-375); Red Blood Count 4.19 M/mm3 (4.2-5.4); Red Cell Distribution Width 12.8 % (11.5-14.5); White Blood Count 13.4 K/mm3 (4.5-10.0)
[2020-09-20 10:55] LABS: INR 1.1; Prothrombin Time 14.3 Seconds (11.1-14.7)
[2020-09-20 10:56] LABS: Partial Thromboplastin Time 28.1 SECONDS (22.3-36.8)
[2020-09-20 10:59] LABS: Alanine Aminotransferase 504 U/L (4-35); Albumin Level 3.3 g/dL (3.5-5.1); Alkaline Phosphatase 121 U/L (38-126); Anion Gap 3 mmol/L (8-16); Aspartate Amino Transferase 683 U/L (14-36); Bilirubin,Total 1.1 mg/dL (0.2-1.3); Blood Urea Nitrogen 17 mg/dL (7-17); Calcium 8.3 mg/dL (8.4-10.2); Carbon Dioxide 30 mmol/L (22-30); Chloride 102 mmol/L (98-107); Estimated CRCL calculation 100 ml/min; Estimated Glomerular Filt Rate > 60; Glucose 121 mg/dL (65-105); Sodium 135 mmol/L (137-145)
[2020-09-20] MEDS: KETOROLAC 30 MG/ML VIAL (*BKC) IV PUSH (13:51)
[2020-09-20] MEDS: CLINDAMYCIN 600 MG/NS 50 ML 600 MG/50 ML PIGGYBACK 100 MG IVPB ×2 (14:15→21:46)
--- NOTE | 2020-09-20 15:09 | PM.IMHP ---
H&P: HPI History of Present Illness Date/Time: 09/20/20 15:09 Chief Complaint: Positive blood culture Narrative: Ofelia Suero is a 30 year old female who was discharged yesterday. She had a tonsillectomy yesterday by Dr. Garcia. Please see her procedure note. The patient was sent home on Augmentin and oxycodone. The patient stated she had a 99.7 temperature during the night. She was having difficulty swallowing. The patient stated that her throat felt more swollen and her neck felt more swollen. The patient stated that she was having difficulty opening her mouth. She had to cut her pain pills to get them down and she also had to cut her Augmentin in 4 different pieces and was still having difficulty getting the antibiotics down. She was nauseated as well. She was unable to eat or drink anything. She feels that her throat is more swollen and she feels like her throat was going to close up. Positive 1 bottle Gram-positive cocci i in clusters air aerobic bottle only. The ER physician notify Dr. Garcia who suggested that the patient be placed on clindamycin. She was given a dose of clindamycin in the emergency room. She is afebrile here. Her white count was noted to be 13.4 today however she did just get her tonsils removed yesterday. Her CT scan of the abdomen and pelvis today was read as. 1.Mucosal thickening in the pharynx. Foci of gas in the left parapharyngeal and application support developer space fat, likely from recent surgery. Improved small retropharyngeal effusion. 2. Mildly enlarged high right internal jugular chain lymph node, likely reactive. 3. Small left pleural effusion. 4. Small volume of ascites. Chest x-ray was read as nothing acute. The patient was given ketorolac in the emergency room as well as IV clindamycin. The patient is being admitted to inpatient status on the date of 09/20/2020. Review of Systems Review of Systems: All systems reviewed & are unremarkable except as noted in HPI and below Constitutional: Constitutional: Reports as per HPI and Reports no additional constitutional complaints Eyes: Eyes: Reports as per HPI and Reports no additional eye complaints ENT: Reports system reviewed and no additional complaints, except as documented and Reports Normal hearing present Cardiovascular: Cardiovascular: Reports no additional cardiovascular complaints Respiratory: Respiratory: Reports no additional respiratory complaints and Reports no additional respiratory complaints Gastrointestinal: Gastrointestinal: Reports as per HPI and Reports no additional gastrointestinal complaints Musculoskeletal: Musculoskeletal: Reports no additional musculoskeletal complaints Integumentary/Breasts: Skin/Breast: Reports system reviewed and no additional complaints, except as docu and Reports as per HPI Neurologic: Reports system reviewed and no additional complaints, except as documented, Reports as per HPI and Reports Normal hearing present Psychiatric: Psychiatric: Reports no additional psychiatric complaints and Reports as per HPI Endocrine: Endocrine: Reports no additional endocrine complaints Hematologic/Lymphatic: Hematologic/Lymphatic: Reports no additional hematologic/lymphatic complaints Allergic/Immunologic: Allergic/Immunologic: Reports no additional allergic/immunologic complaints PMFSH Past Medical History Medical History Anemia Genital warts Well woman exam with routine gynecological exam Surgical History Surgical History (Updated 09/20/20 @ 15:20 by Joann Browning NP) History of tonsillectomy 09/19/2020 Family History Family History Sibling Hypertension Mother Hypertension Social History Social History (Updated 09/20/20 @ 15:21 by Joann Browning NP) Social History: The patient is . 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 The patient is a full code. She does not have
--- NOTE | 2020-09-20 15:09 | PC.NURSE ---
This patient, Ofelia Suero, was admitted to Medical Room 348-01. Patient/family oriented to hospital policies and general routines including ID bracelet, bed and alarms, visiting hours, pain management, procedures, bathroom and other care routines, personal items, smoking policy, room service/diet, and visiting hours. Information on how to activate the Rapid Response Team has been discussed. Patient/Family are encouraged to report perceived risks to care and to ask questions if they do not understand what they are told or what they should do.
[2020-09-20] MEDS: LACTATED RINGERS 1,000 ML 125 ML IV CONT (15:32)
[2020-09-20] MEDS: HYDROmorphone HCL INJ (*CRX) 1 MG/ML SYR 0.5 MG IV PUSH (20:12)
[2020-09-21] MEDS: HYDROmorphone HCL INJ (*CRX) 1 MG/ML SYR 0.5 MG IV PUSH ×6 (00:42→21:08)
[2020-09-21] MEDS: LACTATED RINGERS 1,000 ML 125 ML IV CONT ×3 (00:46→21:08)
[2020-09-21 04:02] VITALS: BP 121/79; PULSE 72; RESP 18; TEMP 36.3; O2SAT 97
[2020-09-21] MEDS: diphenhydrAMINE HCl INJ 50 MG/ML VIAL 25 MG IV PUSH ×2 (05:33→16:13)
[2020-09-21] MEDS: CLINDAMYCIN 600 MG/NS 50 ML 600 MG/50 ML PIGGYBACK 100 MG IVPB ×3 (05:35→21:04)
[2020-09-21 06:00] LABS: Basophils Percent Auto 0.4 % (0.2-1.2); Eosinophils Percent Auto 0.3 % (0-4.4); Hematocrit 36.3 % (37.0-47.0); Hemoglobin 11.7 g/dL (12.0-15.0); Immature Granulocyte Absolute 0.14 K/mm3 (0.00-0.031); Immature Granulocyte Percent A 1.8 % (0-0.5); Lymphocytes Absolute Auto 1.47 K/mm3 (0.9-3.2); Lymphocytes Percent Auto 19.3 % (18.3-44.2); Mean Corpuscular HGB Conc 32.2 g/dl (32-36); Mean Corpuscular Hemoglobin 28.3 pg (26-34); Mean Corpuscular Volume 87.9 fl (80-100); Mean Platelet Volume 10.1 fl (7.4-10.4); Monocytes Absolute Auto 0.6 K/mm3 (0.1-0.6); Monocytes Percent Auto 7.5 % (2.6-8.5); Neutrophils Absolute Auto 5.4 K/mm3 (1.3-6.7); Neutrophils Percent Auto 70.7 % (45.5-73.1); Platelet Count Result 223 k/mm3 (150-375); Red Blood Count 4.13 M/mm3 (4.2-5.4); Red Cell Distribution Width 12.9 % (11.5-14.5); White Blood Count 7.6 K/mm3 (4.5-10.0)
[2020-09-21 06:18] LABS: Alanine Aminotransferase 454 U/L (4-35); Albumin Level 3.2 g/dL (3.5-5.1); Alkaline Phosphatase 124 U/L (38-126); Anion Gap 4 mmol/L (8-16); Aspartate Amino Transferase 325 U/L (14-36); Bilirubin,Total 0.8 mg/dL (0.2-1.3); Blood Urea Nitrogen 16 mg/dL (7-17); Calcium 7.9 mg/dL (8.4-10.2); Carbon Dioxide 33 mmol/L (22-30); Chloride 99 mmol/L (98-107); Estimated CRCL calculation 77 ml/min; Estimated Glomerular Filt Rate > 60; Glucose 98 mg/dL (65-105); Magnesium 1.9 mg/dL (1.6-2.3); Potassium 3.3 mmol/L (3.4-5.0); Sodium 136 mmol/L (137-145)
--- NOTE | 2020-09-21 08:36 | PM.PNGS ---
Progress Note: A&P Assessment and Plan (1) Retropharyngeal abscess: Code(s): J39.0 - Retropharyngeal and parapharyngeal abscess Status: Acute Assessment and Plan: The patient's white count has dropped and half which is both impressive and reassuring. That being said she continues to appear ill and have some right-sided peritonsillar edema which is concerning. If the patient desires and is drinking and mobile and overall feels okay I I think discharge this evening is acceptable. I would discharge her on 300 mg of clindamycin t.i.d.. The patient has my cell phone number and can form you have any and all changes or worsening. I would recommend follow-up next week with myself to keep an eye on her. I am concerned both radiographically as well as clinically that the right peritonsillar region may have a small abscess forming deeper than the peritonsillar space per se. That being said if the patient is afebrile and overall feeling improved this could be monitored at home. Please call me a before discharge and with any and all questions [phone] (2) Peritonsillar abscess: Code(s): J36 - Peritonsillar abscess Status: Acute (3) Tonsillitis: Code(s): J03.90 - Acute tonsillitis, unspecified Status: Acute (4) Neck infection: Code(s): L08.9 - Local infection of the skin and subcutaneous tissue, unspecified Status: Acute Subjective Subjective Date/Time Seen: 09/21/20 08:36 Objective Data Vital Signs Vital Signs: Vital Signs - 24 hr 09/20/20 10:04 09/20/20 10:17 09/20/20 10:18 Temperature 37.2 C Pulse Rate 82 69 73 Respiratory Rate 18 20 19 Blood Pressure 103/79 112/75 Pulse Oximetry 99 97 97 09/20/20 10:30 09/20/20 10:45 09/20/20 11:19 Temperature Pulse Rate 80 82 67 Respiratory Rate 37 H 21 H 18 Blood Pressure Pulse Oximetry 96 97 09/20/20 11:46 09/20/20 12:00 09/20/20 12:15 Temperature Pulse Rate 74 73 75 Respiratory Rate 22 H 16 17 Blood Pressure Pulse Oximetry 97 97 97 09/20/20 12:27 09/20/20 12:30 09/20/20 12:32 Temperature Pulse Rate 68 69 63 Respiratory Rate 25 H 22 H 24 H Blood Pressure 111/69 102/69 Pulse Oximetry 96 93 96 09/20/20 12:45 09/20/20 13:02 09/20/20 13:15 Temperature Pulse Rate 65 Respiratory Rate 20 Blood Pressure Pulse Oximetry 96 100 98 09/20/20 13:30 09/20/20 15:02 09/20/20 15:10 Temperature 36.3 C L Pulse Rate 81 65 72 Respiratory Rate 21 H 16 16 Blood Pressure 102/69 99/70 L Pulse Oximetry 95 97 100 09/20/20 20:00 09/21/20 04:02 Temperature 36.8 C 36.3 C L Pulse Rate 69 72 Respiratory Rate 18 18 Blood Pressure 115/68 121/79 Pulse Oximetry 98 97 Intake/Output Intake/Output: Intake & Output 09/18/20 09/19/20 09/20/20 09/21/20 23:59 23:59 23:59 23:59 Intake Total 820 1200 Output Total 600 400 Balance 220 800 Meds/Results Medications: Active Medications Generic Name Dose Route Start Last Admin Trade Name Freq PRN Reason Stop Dose Admin Diphenhydramine HCl 25 mg 09/20/20 14:20 09/21/20 05:33 Diphenhydramine Hcl Inj 50 Mg/Ml Vial IV PUSH 25 mg Q6H PRN Administration swelling Hydromorphone HCl 0.5 mg 09/20/20 14:19 09/21/20 03:45 Hydromorphone Hcl Inj (*Crx) 1 Mg/Ml Syr IV PUSH 0.5 mg Q3H PRN Administration pain7-10 Clindamycin/Sodium Chloride 600 mg in 50 mls @ 100 mls/hr 09/20/20 22:00 09/21/20 06:05 Clindamycin 600 Mg/Ns 50 Ml IVPB Infused Q8H QUIN Infusion Lactated Ringer's 1,000 mls @ 125 mls/hr 09/20/20 13:40 09/21/20 00:46 Lr - Lactated Ringers Iv IV CONT 125 mls/hr .Q8H QUIN Administration Ondansetron HCl 4 mg 09/20/20 14:20 Ondansetron Inj 4 Mg/2 Ml Vial IV PUSH Q4H PRN nause Radiology Results: ITS Impressions Chest X-Ray 09/20/20 10:44 IMPRESSION: 1. No acute cardiopulmonary disease. Neck/Chest/Abdomen/Pelvis CT 09/20/20 11:46 IMPRESSION: 1.
[2020-09-21] MEDS: POTASSIUM CHLORIDE 20 MEQ PACKET (FOR LIQUID) 40 MEQ PO (08:46)
[2020-09-21 11:28] VITALS: O2SAT 93
--- NOTE | 2020-09-21 12:28 | PM.IMPN ---
Progress Note: A&P Assessment and Plan (1) Bacteremia: Code(s): R78.81 - Bacteremia Status: Acute Assessment and Plan: The patient did have tonsillectomy yesterday. Her leukocytosis is mild. However she did just have surgery yesterday. She has some mucosal thickening in the pharynx and focal gas of the left parapharyngeal and windows server engineer space fat but most likely is due to her recent surgery. The patient had been on Augmentin at home. She was having difficulty swallowing the pill even though she cut it in [address] Garcia had been notified and suggested the patient be on clindamycin. Will continue with clindamycin IV. I suggested that the patient use ice pack on her neck area that is swollen. We can also do some Benadryl as well. The patient states that she feels she has a lot of drainage in the back of her throat. We can do a clear liquid diet. Continue with IV fluids. Repeat blood cultures. The most recent blood culture had 1 bottle with the gram positive cocci in clusters in the aerobic bottle. This could possibly be contaminated but nonetheless will continue with the clindamycin. Blood cultures repeated. The patient is afebrile at this time. However she stated she had a 99.7 temperature at home. Continue with IV Tylenol and Dilaudid. 09/21/20 12:28 patient is a 30-year-old female status post tonsillectomy and I&D peritonsillar abscess on 09/18/20 after the surgery patient was seen by her ENT and patient was clinically stable and discharged home on Augmentin 875 twice a 7 days, however patient presented emergency department on 09/20 with complaint of fever and pain was getting worse patient was admitted for IV antibiotics and IV clindamycin was started, today patient is the pain is still persisting denies any fever or chills, patient 1 blood culture is growing coagulase negative staph aureus sensitivities pending will consult Dr. arriaza for further recommendation, (2) Retropharyngeal abscess: Code(s): J39.0 - Retropharyngeal and parapharyngeal abscess Status: Acute Assessment and Plan: Dr. Garcia has been consulted. Further recommendations per Dr. Garcia. Subjective Date/time seen: 09/21/20 12:28 patient is a 30-year-old female status post tonsillectomy and I&D peritonsillar abscess on 09/18/20 after the surgery patient was seen by her ENT and patient was clinically stable and discharged home on Augmentin 875 twice a 7 days, however patient presented emergency department on 09/20 with complaint of fever and pain was getting worse patient was admitted for IV antibiotics and IV clindamycin was started, today patient is the pain is still persisting denies any fever or chills, patient 1 blood culture is growing coagulase negative staph aureus sensitivities pending will consult Dr. arriaza for further recommendation, Review of Systems Review of Systems: All systems reviewed & are unremarkable except as noted in HPI and below Constitutional: Constitutional: Reports as per HPI and Reports no additional constitutional complaints Exam Narrative: Exam Narrative: Patient appears in pain and ill. Patient is comfortable, NAD HEENT: eyes are clear and none icteric LUNGS:CTA HEART: RR S1S2 ABD: BS+, Soft and nontender Lower extremities: no edema SKIN: nonjaundiced Neuro: grossly intact. Objective Data Vital Signs Vital Signs: Vital Signs - 24 hr 09/20/20 12:30 09/20/20 12:32 09/20/20 12:45 Temperature Pulse Rate 69 63 65 Respiratory Rate 22 H 24 H 20 Blood Pressure 102/69 Pulse Oximetry 93 96 96 09/20/20 13:02 09/20/20 13:15 09/20/20 13:30 Temperature Pulse Rate 81 Respiratory Rate 21 H Blood Pressure Pulse Oximetry 100 98 95 09/20/20 15:02 09/20/20 15:10 09/20/20 20:00 Temperature 97.3 F L 98.3 F Pulse Rate 65 72 69 Respiratory Rate 16 16 18 Blood Pressure 102/69 99/70 L 115/68 Pulse Oximetry 97 100 98 09/21/20 04:02 09/21/20 11:28 Temperatur
[2020-09-21 14:00] VITALS: BP 121/74; PULSE 74; RESP 18; TEMP 36.8; O2SAT 97
[2020-09-21 21:01] VITALS: BP 118/66; PULSE 70; RESP 16; TEMP 36.8; O2SAT 100
[2020-09-22] MEDS: HYDROmorphone HCL INJ (*CRX) 1 MG/ML SYR 0.5 MG IV PUSH ×3 (00:57→11:30)
[2020-09-22] MEDS: CLINDAMYCIN 600 MG/NS 50 ML 600 MG/50 ML PIGGYBACK 100 MG IVPB ×2 (05:25→13:51)
[2020-09-22] MEDS: LACTATED RINGERS 1,000 ML 125 ML IV CONT (05:29)
[2020-09-22 06:00] VITALS: BP 117/78; PULSE 90; RESP 17; TEMP 36.6; O2SAT 97
[2020-09-22 07:26] LABS: Hematocrit 36.3 % (37.0-47.0); Hemoglobin 11.7 g/dL (12.0-15.0); Mean Corpuscular HGB Conc 32.2 g/dl (32-36); Mean Corpuscular Hemoglobin 27.8 pg (26-34); Mean Corpuscular Volume 86.2 fl (80-100); Mean Platelet Volume 9.3 fl (7.4-10.4); Platelet Count Result 227 k/mm3 (150-375); Red Blood Count 4.21 M/mm3 (4.2-5.4); Red Cell Distribution Width 12.7 % (11.5-14.5); White Blood Count 6.7 K/mm3 (4.5-10.0)
--- NOTE | 2020-09-22 07:50 | PM.PNGS ---
Progress Note: A&P Assessment and Plan (1) Retropharyngeal abscess: Code(s): J39.0 - Retropharyngeal and parapharyngeal abscess Status: Acute Assessment and Plan: Patient seen this a.m.. Continued improvement in appearance. White count continues to drop. Pre cancino blood cultures negative. Okay for discharge if patient is agreeable and primary team agreeable. Recommend 300 mg of clindamycin t.i.d. for 7 days. The patient should follow up with me in 1-2 weeks for continued monitoring/evaluation. Typical pain medicine regimen includes 5 mg of oxycodone q.8 hours if needed. Tylenol and ibuprofen okay limits strenuous activity for 1 week. Please call with any questions and/or concerns for [phone]. (2) Peritonsillar abscess: Code(s): J36 - Peritonsillar abscess Status: Acute (3) Tonsillitis: Code(s): J03.90 - Acute tonsillitis, unspecified Status: Acute (4) Neck infection: Code(s): L08.9 - Local infection of the skin and subcutaneous tissue, unspecified Status: Acute Subjective Subjective Date/Time Seen: 09/22/20 07:50 Objective Data Vital Signs Vital Signs: Vital Signs - 24 hr 09/21/20 11:28 09/21/20 14:00 09/21/20 21:01 Temperature 36.8 C 36.8 C Pulse Rate 74 70 Respiratory Rate 18 16 Blood Pressure 121/74 118/66 Pulse Oximetry 93 97 100 09/22/20 06:00 Temperature 36.6 C Pulse Rate 90 Respiratory Rate 17 Blood Pressure 117/78 Pulse Oximetry 97 Intake/Output Intake/Output: Intake & Output 09/19/20 09/20/20 09/21/20 09/22/20 23:59 23:59 23:59 23:59 Intake Total 820 3550 1400 Output Total 600 1650 700 Balance 220 1900 700 Meds/Results Medications: Active Medications Generic Name Dose Route Start Last Admin Trade Name Freq PRN Reason Stop Dose Admin Diphenhydramine HCl 25 mg 09/20/20 14:20 09/21/20 16:13 Diphenhydramine Hcl Inj 50 Mg/Ml Vial IV PUSH 25 mg Q6H PRN Administration swelling Hydromorphone HCl 0.5 mg 09/20/20 14:19 09/22/20 05:25 Hydromorphone Hcl Inj (*Crx) 1 Mg/Ml Syr IV PUSH 0.5 mg Q3H PRN Administration pain7-10 Clindamycin/Sodium Chloride 600 mg in 50 mls @ 100 mls/hr 09/20/20 22:00 09/22/20 07:15 Clindamycin 600 Mg/Ns 50 Ml IVPB Infused Q8H QUIN Infusion Lactated Ringer's 1,000 mls @ 125 mls/hr 09/20/20 13:40 09/22/20 05:29 Lr - Lactated Ringers Iv IV CONT 125 mls/hr .Q8H QUIN Administration Ondansetron HCl 4 mg 09/20/20 14:20 Ondansetron Inj 4 Mg/2 Ml Vial IV PUSH Q4H PRN nause Radiology Results: ITS Impressions Chest X-Ray 09/20/20 10:44 IMPRESSION: 1. No acute cardiopulmonary disease. Neck/Chest/Abdomen/Pelvis CT 09/20/20 11:46 IMPRESSION: 1. Mucosal thickening in the pharynx. Foci of gas in the left parapharyngeal and naturopathic physician space fat, likely from recent surgery. Improved small retropharyngeal effusion. 2. Mildly enlarged high right internal jugular chain lymph node, likely reactive. 3. Small left pleural effusion. 4. Small volume of ascites. Venous Doppler Study 09/21/20 09:51 IMPRESSION: No deep venous thrombosis of the right upper extremity. Labs Labs: Laboratory Results - last 24 hr 09/22/20 07:15 WBC 6.7 RBC 4.21 Hgb 11.7 L Hct 36.3 L MCV 86.2 MCH 27.8 MCHC 32.2 RDW 12.7 Plt Count 227 MPV 9.3 Quality VTE Prophylaxis VTE prophylaxis: mechanical ordered
[2020-09-22 09:05] LABS: Hepatitis B Surface Antigen Negative (Negative)
[2020-09-22 09:11] LABS: HAV RESULT Negative (Negative); Hepatitis B Core IgM Result Negative (Negative)
[2020-09-22 09:22] LABS: Hepatitis C Virus Antibody Negative (Negative)
--- NOTE | 2020-09-22 13:41 | P.PNINF_ITS ---
Progress Note: A&P Assessment and Plan (1) Bacteremia: Code(s): R78.81 - Bacteremia Status: Acute Assessment and Plan: CNSS bacteremia, skin contaminant REC Agree with antibiotic plan per ENT. Needs no Rx for the bacteremia Subjective Date/time seen: 09/22/20 13:41 Objective Data Vital Signs Vital Signs: Vital Signs - 24 hr 09/21/20 14:00 09/21/20 21:01 09/22/20 06:00 Temperature 36.8 C 36.8 C 36.6 C Pulse Rate 74 70 90 Respiratory Rate 18 16 17 Blood Pressure 121/74 118/66 117/78 Pulse Oximetry 97 100 97 Intake/Output Intake/Output: Intake & Output 09/19/20 09/20/20 09/21/20 09/22/20 23:59 23:59 23:59 23:59 Intake Total 820 3550 1880 Output Total 600 1650 700 Balance 220 1900 1180 Meds/Results Medications: Active Medications Generic Name Dose Route Start Last Admin Trade Name Freq PRN Reason Stop Dose Admin Diphenhydramine HCl 25 mg 09/20/20 14:20 09/21/20 16:13 Diphenhydramine Hcl Inj 50 Mg/Ml Vial IV PUSH 25 mg Q6H PRN Administration swelling Hydromorphone HCl 0.5 mg 09/20/20 14:19 09/22/20 11:30 Hydromorphone Hcl Inj (*Crx) 1 Mg/Ml Syr IV PUSH 0.5 mg Q3H PRN Administration pain7-10 Clindamycin/Sodium Chloride 600 mg in 50 mls @ 100 mls/hr 09/20/20 22:00 09/22/20 07:15 Clindamycin 600 Mg/Ns 50 Ml IVPB Infused Q8H QUNI Infusion Lactated Ringer's 1,000 mls @ 125 mls/hr 09/20/20 13:40 09/22/20 05:29 Lr - Lactated Ringers Iv IV CONT 125 mls/hr .Q8H QUIN Administration Ondansetron HCl 4 mg 09/20/20 14:20 Ondansetron Inj 4 Mg/2 Ml Vial IV PUSH Q4H PRN nause Radiology Results: ITS Impressions Chest X-Ray 09/20/20 10:44 IMPRESSION: 1. No acute cardiopulmonary disease. Neck/Chest/Abdomen/Pelvis CT 09/20/20 11:46 IMPRESSION: 1. Mucosal thickening in the pharynx. Foci of gas in the left parapharyngeal and bunch breaker machine operator space fat, likely from recent surgery. Improved small retropharyngeal effusion. 2. Mildly enlarged high right internal jugular chain lymph node, likely reactive. 3. Small left pleural effusion. 4. Small volume of ascites. Venous Doppler Study 09/21/20 09:51 IMPRESSION: No deep venous thrombosis of the right upper extremity. Abdomen Ultrasound 09/22/20 09:38 IMPRESSION: 1. Normal right upper quadrant ultrasound. Labs Labs: Laboratory Results - last 24 hr 09/22/20 09/22/20 07:15 07:15 WBC 6.7 RBC 4.21 Hgb 11.7 L Hct 36.3 L MCV 86.2 MCH 27.8 MCHC 32.2 RDW 12.7 Plt Count 227 MPV 9.3 Hepatitis A IgM Ab Negative Hep Bs Antigen Negative Hep B Core IgM Ab Negative Hepatitis C Ab Screen Negative
[2020-09-22 14:00] VITALS: BP 123/78; PULSE 72; RESP 16; TEMP 36.1; O2SAT 100
--- NOTE | 2020-09-22 15:04 | PM.IMPN ---
Progress Note: A&P Assessment and Plan (1) Bacteremia: Code(s): R78.81 - Bacteremia Status: Acute Assessment and Plan: The patient did have tonsillectomy yesterday. Her leukocytosis is mild. However she did just have surgery yesterday. She has some mucosal thickening in the pharynx and focal gas of the left parapharyngeal and vp packaging space fat but most likely is due to her recent surgery. The patient had been on Augmentin at home. She was having difficulty swallowing the pill even though she cut it in [address] Garcia had been notified and suggested the patient be on clindamycin. Will continue with clindamycin IV. I suggested that the patient use ice pack on her neck area that is swollen. We can also do some Benadryl as well. The patient states that she feels she has a lot of drainage in the back of her throat. We can do a clear liquid diet. Continue with IV fluids. Repeat blood cultures. The most recent blood culture had 1 bottle with the gram positive cocci in clusters in the aerobic bottle. This could possibly be contaminated but nonetheless will continue with the clindamycin. Blood cultures repeated. The patient is afebrile at this time. However she stated she had a 99.7 temperature at home. Continue with IV Tylenol and Dilaudid. 09/21/20 12:28 patient is a 30-year-old female status post tonsillectomy and I&D peritonsillar abscess on 09/18/20 after the surgery patient was seen by her ENT and patient was clinically stable and discharged home on Augmentin 875 twice a 7 days, however patient presented emergency department on 09/20 with complaint of fever and pain was getting worse patient was admitted for IV antibiotics and IV clindamycin was started, today patient is the pain is still persisting denies any fever or chills, patient 1 blood culture is growing coagulase negative staph aureus sensitivities pending will consult Dr. arriaza for further recommendation, (2) Retropharyngeal abscess: Code(s): J39.0 - Retropharyngeal and parapharyngeal abscess Status: Acute Assessment and Plan: Dr. Garcia has been consulted. Further recommendations per Dr. Garcia. Subjective Date/time seen: 09/22/20 15:04 Exam Narrative: Exam Narrative: Patient appears in pain and ill. Patient is comfortable, NAD HEENT: eyes are clear and none icteric LUNGS:CTA HEART: RR S1S2 ABD: BS+, Soft and nontender Lower extremities: no edema SKIN: nonjaundiced Neuro: grossly intact. Objective Data Vital Signs Vital Signs: Vital Signs - 24 hr 09/21/20 21:01 09/22/20 06:00 09/22/20 14:00 Temperature 98.3 F 97.8 F 97.0 F L Pulse Rate 70 90 72 Respiratory Rate 16 17 16 Blood Pressure 118/66 117/78 123/78 Pulse Oximetry 100 97 100 Intake/Output Intake/Output: Intake & Output 09/19/20 09/20/20 09/21/20 09/22/20 23:59 23:59 23:59 23:59 Intake Total 820 3550 2170 Output Total 600 1650 700 Balance 220 1900 1470 Meds/Results Medications: Active Medications Generic Name Dose Route Start Last Admin Trade Name Freq PRN Reason Stop Dose Admin Diphenhydramine HCl 25 mg 09/20/20 14:20 09/21/20 16:13 Diphenhydramine Hcl Inj 50 Mg/Ml Vial IV PUSH 25 mg Q6H PRN Administration swelling Hydromorphone HCl 0.5 mg 09/20/20 14:19 09/22/20 11:30 Hydromorphone Hcl Inj (*Crx) 1 Mg/Ml Syr IV PUSH 0.5 mg Q3H PRN Administration pain7-10 Clindamycin/Sodium Chloride 600 mg in 50 mls @ 100 mls/hr 09/20/20 22:00 09/22/20 14:21 Clindamycin 600 Mg/Ns 50 Ml IVPB Infused Q8H QUIN Infusion Lactated Ringer's 1,000 mls @ 125 mls/hr 09/20/20 13:40 09/22/20 05:29 Lr - Lactated Ringers Iv IV CONT 125 mls/hr .Q8H QUIN Administration Ondansetron HCl 4 mg 09/20/20 14:20 Ondansetron Inj 4 Mg/2 Ml Vial IV PUSH Q4H PRN nause Radiology Results: ITS Impressions Chest X-Ray 09/20/20 10:44 IMPRESSION: 1. No acute cardiopulmonary disease.
--- NOTE | 2020-09-22 19:18 | CONS_ITS ---
DATE OF CONSULTATION: 09/22/2020 REASON FOR CONSULTATION: Bacteremia. HISTORY OF PRESENT ILLNESS: 30-year-old female without previous surgery, chronic medical illnesses, or defects. She was originally admitted to the hospital on September 18 with sore throat. She was taken to the operating room the following day and underwent tonsillectomy and I and D of a retropharyngeal abscess. Findings included dishwater type fluid in the right peritonsillar space. She was discharged on postop day 1 with Augmentin. She returned to the hospital about 24 hours later with ongoing pain, temperature up to 37.6, and more proximately was recalled due to positive blood cultures. She has been changed to clindamycin and consultation requested late yesterday. She has no prosthetic devices. No history of bloodstream infection. Today, she is able to eat soft food and drink liquids with less difficulty than previously. Her previous throat culture grew group A strep. ALLERGIES: NONE KNOWN. PRESENT MEDICATIONS: Clindamycin IV piggyback. HABITS: No tobacco. No alcohol. PAST MEDICAL HISTORY: Genital warts and anemia. REVIEW OF SYSTEMS: Constitutional, skin, ENT, GI, respiratory negative other than a bitemporal headache, which she thinks radiates from the mandible. FAMILY HISTORY: Not pertinent to her present illness. SOCIAL HISTORY: . Works and lives locally. PHYSICAL EXAMINATION: GENERAL: Young female appears her actual age. No distress. VITAL SIGNS: Temperature on the day of discharge was up to 38.2. She has been afebrile since then including since her readmission. Pulse 90, respirations 17, 117/78, 97% on room air. SKIN: No generalized rashes. No erythroderma. EENT: She has erythema and some exudate over the posterior soft palate with peritonsillar erythema. She has no thrush. Mucous membranes are well hydrated. Pupils equal, round, and reactive to light. She has full extraocular movements. Gaze is conjugate. No nystagmus. Petechiae are absent in the conjunctivae. NECK: Mild tenderness. No asymmetry, masses, fluctuance. LUNGS: Clear to auscultation and percussion. Excellent air entry. CARDIAC: Regular rate and rhythm. No murmur, gallop. ABDOMEN: Soft, nontender. No organomegaly. No masses. EXTREMITIES: Without clubbing, cyanosis, edema. LABORATORY DATA: Blood cultures 1 of 2 sets coagulase-negative staph species, this from September 18. Blood cultures repeated 2 days ago, no growth after incubation of 48 hours. White blood cell count was 12.2 initially, 13.4 on re-arrival, has been normal since. Hemoglobin 11.7, platelets 227. Differential with a mild left shift. Chemistries with mild hyponatremia, hypocalcemia, elevated transaminases. Hepatitis panel nonreactive. RADIOLOGY: Right upper quadrant ultrasound normal. Chest, abdomen, pelvic CT performed September 20, pharyngeal mucosal thickening, internal jugular lymph nodes reactive, small left pleural effusion and ascites. ASSESSMENT: 1. Staphylococcus bacteremia, skin contaminant. 2. Retropharyngeal abscess and tonsillitis, postop day and progressing well. 3. Leukocytosis due to corticosteroids and her retropharyngeal abscess, resolved for the moment. 4. Elevated transaminases, evaluation process. RECOMMENDATIONS: 1. Agree with oral clindamycin at the time of discharge, as recommended by Dr. Garcia. 2. No additional evaluation or treatment needed for the staphylococcus bacteremia. 3. Okay with me for discharge. Thank you very much for asking me to see her. SHANON FLOWERS M.D. CIGARETTE MAKING MACHINE CATCHER CIGARETTE MAKING MACHINE CATCHER D I
--- NOTE | 2020-10-16 11:27 | PM.DS ---
DS: Admitting Diagnosis Admitting Diagnosis Admitting Diagnosis: Chief Complaint: Positive blood culture DS: Discharge Diagnosis Discharge Diagnosis (1) Bacteremia: Code(s): R78.81 - Bacteremia Status: Acute Assessment and Plan: The patient did have tonsillectomy yesterday. Her leukocytosis is mild. However she did just have surgery yesterday. She has some mucosal thickening in the pharynx and focal gas of the left parapharyngeal and pmo project manager space fat but most likely is due to her recent surgery. The patient had been on Augmentin at home. She was having difficulty swallowing the pill even though she cut it in [address] Garcia had been notified and suggested the patient be on clindamycin. Will continue with clindamycin IV. I suggested that the patient use ice pack on her neck area that is swollen. We can also do some Benadryl as well. The patient states that she feels she has a lot of drainage in the back of her throat. We can do a clear liquid diet. Continue with IV fluids. Repeat blood cultures. The most recent blood culture had 1 bottle with the gram positive cocci in clusters in the aerobic bottle. This could possibly be contaminated but nonetheless will continue with the clindamycin. Blood cultures repeated. The patient is afebrile at this time. However she stated she had a 99.7 temperature at home. Continue with IV Tylenol and Dilaudid. 09/21/20 12:28 patient is a 30-year-old female status post tonsillectomy and I&D peritonsillar abscess on 09/18/20 after the surgery patient was seen by her ENT and patient was clinically stable and discharged home on Augmentin 875 twice a 7 days, however patient presented emergency department on 09/20 with complaint of fever and pain was getting worse patient was admitted for IV antibiotics and IV clindamycin was started, today patient is the pain is still persisting denies any fever or chills, patient 1 blood culture is growing coagulase negative staph aureus sensitivities pending will consult Dr. arriaza for further recommendation, (2) Retropharyngeal abscess: Code(s): J39.0 - Retropharyngeal and parapharyngeal abscess Status: Acute Assessment and Plan: Dr. Garcia has been consulted. Further recommendations per Dr. Garcia. DS: Summary Hospital Course Reason for hospitalization: Chief Complaint: Positive blood culture Narrative: Ofelia Suero is a 30 year old female who was discharged yesterday. She had a tonsillectomy yesterday by Dr. Garcia. Please see her procedure note. The patient was sent home on Augmentin and oxycodone. The patient stated she had a 99.7 temperature during the night. She was having difficulty swallowing. The patient stated that her throat felt more swollen and her neck felt more swollen. The patient stated that she was having difficulty opening her mouth. She had to cut her pain pills to get them down and she also had to cut her Augmentin in 4 different pieces and was still having difficulty getting the antibiotics down. She was nauseated as well. She was unable to eat or drink anything. She feels that her throat is more swollen and she feels like her throat was going to close up. Positive 1 bottle Gram-positive cocci i in clusters air aerobic bottle only. The ER physician notify Dr. Garcia who suggested that the patient be placed on clindamycin. She was given a dose of clindamycin in the emergency room. She is afebrile here. Her white count was noted to be 13.4 today however she did just get her tonsils removed yesterday. Her CT scan of the abdomen and pelvis today was read as. 1.Mucosal thickening in the pharynx. Foci of gas in the left parapharyngeal and pmo project manager space fat, likely from recent surgery. Improved small retropharyngeal effusion. 2. Mildly enlarged high right internal jugular chain lymph node, likely reactive. 3. Small left pleural effusion. 4. Small volume of ascites. Chest x-ray was read as nothing acute. The
== END 2020-09-22 15:58 | disposition home or self-care (01) | DRG 153 ==
LOC: ANHED 14:25 → ANH3MED 14:29
PROVIDERS: Nurse Practitioner; Otolaryngology; Admitting Provider Family Medicine; Emergency Provider Emergency Medicine; PCP Family Medicine; Visit Provider Family Medicine
DX: J39.0 Retropharyngeal and parapharyngeal abscess (principal); R78.81 Bacteremia; L08.9 Local infection of the skin and subcutaneous tissue, unspecified; R74.01 Elevation of levels of liver transaminase levels; Z98.890 Other specified postprocedural states
CPT/HCPCS: 36415; 70491; 71045; 71260; 74177; 76705; 80053; 80074; 81025; 83605; 83735; 84443; 85025; 85027; 85610; 85730; 86140; 87040; 93971; 96365; 96375; 99285; A9270; G0378; J1170; J1200; J1885; J7120; Q9967

== ENCOUNTER 2022-07-16 10:40 | Outpatient (CLI) | payer BC, SELFPAY ==
--- NOTE | ~2022-07-16 | US_ITS ---
Pelvic ultrasound. Clinical History: First trimester , amenorrhea, evaluate dates and viability Technique: Realtime transabdominal and transvaginal scanning of the pelvis was performed. Color flow Doppler and Doppler spectral analysis were performed. Findings: The uterus is anteverted, and contains an intrauterine gestation. Placenta located towards the fundus. Cervix closed, measuring 4.9 cm in length. Maria Antonia-rump length of 3.9 cm corresponds to an estimated gestational age of 10 weeks 5 days. heart rate is 169 bpm. The right ovary measures 1.7 x 1.2 x 1.4 cm. No significant right ovarian or adnexal mass is seen. The left ovary measures 2.7 x 1.8 x 1.8 cm. No significant left ovarian or adnexal mass is seen. Vascular flow present in both ovaries on Doppler spectral analysis. There is no evidence of free fluid in the cul de sac. Impression: Live intrauterine gestation with estimated gestational age of 10 weeks 5 days. heart rate is 16 9 bpm. Reviewed, dictated and finalized at [facility]. E MAKER Impression: Live intrauterine gestation with estimated gestational age of 10 weeks 5 days. heart rate is 169 bpm.
== END 2022-07-16 10:41 | disposition home or self-care (01) ==
PROVIDERS: Visit Provider Obstetrics & Gynecology
DX: Z36.89 Encounter for other specified antenatal screening (principal); Z3A.10 10 weeks gestation of pregnancy
CPT/HCPCS: 76801

== ENCOUNTER 2022-07-23 09:42 | Outpatient (CLI) | payer BC, SELFPAY | END 2022-07-23 09:43 | disposition home or self-care (01) | PROVIDERS: Visit Provider Obstetrics & Gynecology | DX: O26.859 Spotting complicating pregnancy, unspecified trimester (principal) | CPT/HCPCS: 36415; 86850; 86900; 86901 ==

== ENCOUNTER 2022-11-28 09:08 | Outpatient (CLI) | payer BC, SELFPAY ==
--- NOTE | ~2022-11-28 | US_ITS ---
EXAMINATION:US venous doppler LE LT INDICATION:Left leg swelling. 7 months . TECHNIQUE: Multiple grayscale, color flow and Doppler images of the left lower extremity deep venous systems were obtained and reviewed. COMPARISON:No prior studies for comparison. FINDINGS: The common femoral, superficial femoral and popliteal veins demonstrate normal respiratory variation, augmentation and compressibility. Color flow is also seen within the posterior tibial, pe roneal, greater saphenous and profunda veins. IMPRESSION: 1: No lower extremity deep venous thrombosis. Reviewed, dictated and finalized at location [facility].
== END 2022-11-28 09:09 | disposition home or self-care (01) ==
PROVIDERS: Visit Provider Obstetrics & Gynecology
DX: M79.89 Other specified soft tissue disorders (principal); M25.472 Effusion, left ankle
CPT/HCPCS: 93971

== ENCOUNTER 2023-01-30 09:24 | Outpatient (RCR) | payer BC, SELFPAY ==
[2023-01-30 10:43] LABS: Basophils Percent Auto 0.6 % (0.2-1.2); Eosinophils Absolute Auto 0.1 K/mm3 (0-0.3); Eosinophils Percent Auto 1.3 % (0-4.4); Hematocrit 35.8 % (37.0-47.0); Hemoglobin 11.2 g/dL (12.0-15.0); Immature Granulocyte Absolute 0.04 K/mm3 (0.00-0.031); Immature Granulocyte Percent A 0.6 % (0-0.5); Lymphocytes Absolute Auto 1.29 K/mm3 (0.9-3.2); Lymphocytes Percent Auto 18.3 % (18.3-44.2); Mean Corpuscular HGB Conc 31.3 g/dl (32-36); Mean Corpuscular Hemoglobin 27.3 pg (26-34); Mean Corpuscular Volume 87.3 fl (80-100); Mean Platelet Volume 11.1 fl (7.4-10.4); Monocytes Absolute Auto 0.4 K/mm3 (0.1-0.6); Monocytes Percent Auto 6.2 % (2.6-8.5); Neutrophils Absolute Auto 5.2 K/mm3 (1.3-6.7); Platelet Count Result 221 k/mm3 (150-375); Red Cell Distribution Width 14.1 % (11.5-14.5); White Blood Count 7.1 K/mm3 (4.5-10.0)
[2023-01-30 10:57] LABS: Alanine Aminotransferase 16 U/L (6-35); Albumin Level 3.4 g/dL (3.5-5.1); Alkaline Phosphatase 144 U/L (38-126); Anion Gap 6 mmol/L (8-16); Aspartate Amino Transferase 20 U/L (14-36); Bilirubin,Total 0.3 mg/dL (0.2-1.3); Blood Urea Nitrogen 7 mg/dL (7-17); Calcium 8.4 mg/dL (8.4-10.2); Carbon Dioxide 21 mmol/L (22-30); Chloride 108 mmol/L (98-107); Estimated Glomerular Filt Rate > 60; Glucose 94 mg/dL (65-110); Potassium 3.9 mmol/L (3.4-5.0); Sodium 135 mmol/L (137-145); Uric Acid 4.5 mg/dL (2.5-7.5)
[2023-01-30 11:14] LABS: Creatinine Urine 25.7 mg/dL; Total Protein Urine Random 17 mg/dL; Ur Ttl Prot Creatinine Ratio 0.66 mg/mg (0-0.20)
[2023-01-30 12:04] VITALS: BP 140/91; PULSE 62
[2023-01-30 12:10] LABS: Appearance Urine Clear (Clear); Bilirubin Urine Negative (Negative); Blood Urine Negative (Negative); Color Urine Yellow (Yellow); Glucose Urine UA Negative (Negative); Ketones Urine Negative (Negative); Leukocyte Esterase Ur Negative LEU/UL (Negative); Nitrate Urine Negative (Negative); Protein Urine Negative (Negative); Specific Grav Ur 1.006 (1.001-1.035); Urobilinogen Urine 0.2 mg/dL (<2.0)
[2023-01-30 12:11] LABS: Add Urine Microscopic? NO
== END 2023-04-30 10:40 | disposition home or self-care (01) ==
LOC: ANHOBOP 09:24
PROVIDERS: Visit Provider Obstetrics & Gynecology
DX: O36.8130 Decreased fetal movements, third trimester, not applicable or unspecified (principal); Z3A.38 38 weeks gestation of pregnancy
CPT/HCPCS: 36415; 59025; 80053; 81003; 82570; 84156; 84550; 85025; J2274

== ENCOUNTER 2023-01-31 13:49 | Outpatient (NON) | payer BC, SELFPAY ==
[2023-01-31 14:17] LABS: Collection Time Urine 24 HOURS; Patient Weight 180 Lbs; Total Volume 24 Hour Urine 2100 ml
[2023-01-31 14:25] LABS: Creatinine Clearance Urine 148.7 ml/min (75-125); Creatinine Urine 65.9 mg/dL; Total Protein Urine Random 26 mg/dL
[2023-01-31 14:48] LABS: Total Protein Urine 24 Hr 546 mg/24hr (28-141)
== END 2023-01-31 13:50 | disposition home or self-care (01) ==
LOC: ANHOBOP 14:02
PROVIDERS: Visit Provider Obstetrics & Gynecology
DX: O99.891 Other specified diseases and conditions complicating pregnancy (principal); R03.0 Elevated blood-pressure reading, without diagnosis of hypertension
CPT/HCPCS: 81050; 82575; 84156

== ENCOUNTER 2023-02-03 18:28 | Inpatient (IN) | payer BC, SELFPAY ==
[2023-02-03] VITALS (10 sets, daily range): BP systolic 128–159; BP diastolic 73–98; PULSE 65–75
--- NOTE | 2023-02-03 19:33 | P.PNAN_ITS ---
Anes - Eval Pre Procedure Procedure: labor epidural Date/Time: 02/03/23 19:33 Surgeon: brad Preop Diagnosis: pain during labor Pre Op Diagnosis: IOL Patient Data Age: 32 Gender: F Height: Weight: Last Vital Signs Pulse 75 02/03/23 19:30 BP 158/97 H 02/03/23 19:30 Allergies Allergy/AdvReac Type Severity Reaction Status Date / Time No Known Allergies Allergy Verified 01/30/23 08:45 Home Medications Medication Instructions Recorded Confirmed Type vitamins no.119-iron 1 tablet PO . daily #90 tabs 07/05/22 01/30/23 Rx fumarate 29 mg-folic acid 1 mg tablet sertraline 50 mg tablet 50 mg PO DAILY #90 tabs 01/17/23 01/30/23 Rx Patient hx anesthesia problems: none Family hx anesthesia problems: none Results Review: All pre-operative results and documents have been reviewed as part of the pre- operative evaluation. FORMERLY [facility] Past Medical History Medical History Anemia Genital warts Well woman exam with routine gynecological exam Surgical History Surgical History History of tonsillectomy 09/19/2020 Family History Family History Sibling Hypertension Mother Hypertension Social History Social History Social History: The patient is . 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 The patient is a full code. She does not have any children. She is a lifelong nonsmoker. She does not use any alcohol marijuana or illicit drugs. The patient works at [employer]. Smoking status: Never smoker Second hand tobacco smoke exposure: No Alcohol intake: current Drinks per week: 1 Substance use: never Lack of Transportation: No Lack of Food: Never True Current Housing: I Have Housing Concerned About Future Housing: No Difficulty Paying Gas/Electric Bills: No Difficulty Paying for Meds: No Currently Unemployed: No Education: Bachelor's Degree Difficulty w/ Childcare or Family Care: No Gender identity (if verbalized by the patient): Female Spiritual care concerns: No Exam Day of Procedure 02/03/23 19:33
[2023-02-03] MEDS: DINOPROSTONE 10 MG VAG INSERT VAGINAL (21:10)
[2023-02-03 21:26] LABS: Basophils Percent Auto 0.5 % (0.2-1.2); Eosinophils Absolute Auto 0.1 K/mm3 (0-0.3); Eosinophils Percent Auto 0.8 % (0-4.4); Hematocrit 37.3 % (37.0-47.0); Immature Granulocyte Absolute 0.03 K/mm3 (0.00-0.031); Immature Granulocyte Percent A 0.4 % (0-0.5); Lymphocytes Absolute Auto 1.65 K/mm3 (0.9-3.2); Lymphocytes Percent Auto 19.7 % (18.3-44.2); Mean Corpuscular HGB Conc 32.2 g/dl (32-36); Mean Corpuscular Hemoglobin 27.6 pg (26-34); Mean Corpuscular Volume 85.9 fl (80-100); Mean Platelet Volume 11.3 fl (7.4-10.4); Monocytes Absolute Auto 0.5 K/mm3 (0.1-0.6); Monocytes Percent Auto 5.5 % (2.6-8.5); Neutrophils Absolute Auto 6.1 K/mm3 (1.3-6.7); Neutrophils Percent Auto 73.1 % (45.5-73.1); Platelet Count Result 264 k/mm3 (150-375); Red Blood Count 4.34 M/mm3 (4.2-5.4); Red Cell Distribution Width 14.3 % (11.5-14.5); White Blood Count 8.4 K/mm3 (4.5-10.0)
[2023-02-04] VITALS (259 sets, daily range): BP systolic 121–168; BP diastolic 62–107; PULSE 35–131; RESP 16–19; TEMP 36.4–37.5; O2SAT 88–100; BMI 31.0
--- NOTE | 2023-02-04 04:46 | LDADM ---
This patient, Ofelia Gallardo, was admitted to Labor/Delivery/Recovery 109 on 02/03/23 at 18:28. Plans for labor, pain management and were discussed with patient. Patient/family oriented to hospital policies and general routines including ID bracelet, bed and alarms, visiting hours, pain management, procedures, bathroom and other care routines, personal items, smoking policy, room service/diet and guest tray routines, security routines, and visiting hours. Patient/Family are encouraged to report perceived risks to care and to ask questions if they do not understand what they are told or what they should do. See OBIX for further documentation.
[2023-02-04] MEDS: LACTATED RINGERS 1,000 ML 125 ML IV CONT ×4 (05:37→20:05)
[2023-02-04] MEDS: SERTRALINE HCL 50 MG TABLET PO (08:51)
[2023-02-04 09:12] LABS: Alanine Aminotransferase 17 U/L (6-35); Albumin Level 3.6 g/dL (3.5-5.1); Alkaline Phosphatase 163 U/L (38-126); Anion Gap 3 mmol/L (8-16); Aspartate Amino Transferase 21 U/L (14-36); Bilirubin,Total 0.4 mg/dL (0.2-1.3); Blood Urea Nitrogen 9 mg/dL (7-17); Calcium 8.3 mg/dL (8.4-10.2); Carbon Dioxide 23 mmol/L (22-30); Chloride 108 mmol/L (98-107); Estimated CRCL calculation 117 ml/min; Estimated Glomerular Filt Rate > 60; Glucose 82 mg/dL (65-110); Potassium 4.1 mmol/L (3.4-5.0); Sodium 134 mmol/L (137-145); Uric Acid 4.8 mg/dL (2.5-7.5)
[2023-02-04] MEDS: OXYTOCIN 30 UNITS/NS 500 ML 30 UNITS/500 ML BAG 6 UNITS IV CONT (09:28)
--- NOTE | 2023-02-04 10:04 | PM.IMHP ---
H&P: HPI History of Present Illness Date/Time: 02/04/23 10:04 Chief Complaint: Induction of labor Narrative: Patient is a G1 at 39 weeks by a last menstrual period with an EDC of 02/09/2023 consistent with 1st trimester ultrasound. Admitted for medical induction of labor social. course significant for her having 1 elevated blood pressure at her testing surveillance testing last week. She had a 24 hour urine due to increased protein creatinine ratio. Her 24 hour urine came back over the weekend elevated. She denies any severe headaches or scotomata or right upper quadrant pain. Blood pressures on admission 140s over 90s. She had been scheduled previously for induction at 39 weeks social. The blood pressures on admission would be her 2nd time have any elevated pressures. She was informed this gives her the diagnosis of mild preeclampsia without severe features. Review of Systems Review of Systems: All systems reviewed & are unremarkable except as noted in HPI and below Constitutional: Constitutional: Reports no additional constitutional complaints and Denies headache(s) Eyes: Eyes: Denies spots in vision ENT: Reports system reviewed and no additional complaints, except as documented and Denies headache(s) Cardiovascular: Cardiovascular: Denies chest pain and Denies dyspnea Respiratory: Respiratory: Denies dyspnea Gastrointestinal: Gastrointestinal: Reports no additional gastrointestinal complaints Genitourinary: Genitourinary: Reports amenorrhea Musculoskeletal: Musculoskeletal: Reports no additional musculoskeletal complaints Integumentary/Breasts: Skin/Breast: Denies breast mass and Denies rash Neurologic: Denies headache(s) Psychiatric: Psychiatric: Reports no additional psychiatric complaints PMFSH Past Medical History Medical History Anemia Genital warts Well woman exam with routine gynecological exam Surgical History Surgical History History of tonsillectomy 09/19/2020 Family History Family History Sibling Hypertension Mother Hypertension Social History Social History Social History: The patient is . 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 The patient is a full code. She does not have any children. She is a lifelong nonsmoker. She does not use any alcohol marijuana or illicit drugs. The patient works at [employer]. Smoking status: Never smoker Second hand tobacco smoke exposure: No Alcohol intake: current Drinks per week: 1 Substance use: never Lack of Transportation: No Lack of Food: Never True Current Housing: I Have Housing Concerned About Future Housing: No Difficulty Paying Gas/Electric Bills: No Difficulty Paying for Meds: No Currently Unemployed: No Education: Master's Degree or Higher Difficulty w/ Childcare or Family Care: No Gender identity (if verbalized by the patient): Female Spiritual care concerns: No Meds Home Medications and Allergies Home Medications Medication Instructions Recorded Confirmed Type vitamins no.119-iron 1 tablet PO . daily #90 tabs 07/05/22 02/04/23 Rx fumarate 29 mg-folic acid 1 mg tablet sertraline 50 mg tablet 50 mg PO DAILY #90 tabs 01/17/23 02/04/23 Rx Allergies Allergy/AdvReac Type Severity Reaction Status Date / Time No Known Allergies Allergy Verified 01/30/23 08:45 Vital Signs Vital Signs - 24 hr 02/03/23 19:19 02/03/23 19:30 02/03/23 20:00 Temperature Pulse Rate 68 75 74 Respiratory Rate Blood Pressure 159/95 H 158/97 H 150/98 H Pulse Oximetry Oxygen Delivery 02/03/23 20:30 02/03/23 21:16 02/03/23 21:30 Temperature Pulse Rate 74 67 66 Respiratory Rate Blood Pressur
--- NOTE | 2023-02-04 10:15 | PM.OBPNLAB ---
Pain Control Date/time seen: 02/04/23 0825 heart tones 125 category 2, cervix 2/60-70/-2 AROM thick meconium with particulate. Discussed meconium with patient and management at time of delivery and possible amnio infusion based on tracing findings. Will monitor continue to monitor.
[2023-02-04] MEDS: SODIUM CHLORIDE 0.9% IV 300 ML 600 ML I-UTERINE (10:26)
[2023-02-04 11:22] LABS: Rapid Plasma Reagin Non-Reactive (NonReactive)
[2023-02-04] MEDS: SODIUM CHLORIDE 0.9% IV 1,000 ML 150 ML I-UTERINE (12:00)
--- NOTE | 2023-02-04 16:40 | PM.OBPNVD ---
OB - PN: Subj Subjective Date/time seen: 02/04/23 16:40 Interval history: FHT 110, cat 2, cervix //-1. OP. OB - PN: Obj Data Labs 02/03/23 21:21 02/04/23 08:44 Labs: Laboratory Results - last 24 hr 02/03/23 02/04/23 21:21 08:44 WBC 8.4 RBC 4.34 Hgb 12.0 Hct 37.3 MCV 85.9 MCH 27.6 MCHC 32.2 RDW 14.3 Plt Count 264 MPV 11.3 H Immature Gran % (Auto) 0.4 Neut % (Auto) 73.1 Lymph % (Auto) 19.7 [place] % (Auto) 5.5 Eos % (Auto) 0.8 Baso % (Auto) 0.5 Lymph # (Auto) 1.65 [place] # (Auto) 0.5 Eos # (Auto) 0.1 Baso # (Auto) 0.0 Abs Immat Gran (auto) 0.03 Absolute Neuts (auto) 6.1 Absolute Nucleated RBC 0.0 Nucleated RBC % 0.0 Sodium 134 L Potassium 4.1 Chloride 108 H Carbon Dioxide 23 Anion Gap 3 L BUN 9 Creatinine 0.60 L Estim Creat Clear Calc 117 Estimated GFR > 60 Glucose 82 Uric Acid 4.8 Calcium 8.3 L Total Bilirubin 0.4 AST 21 ALT 17 Alkaline Phosphatase 163 H Total Protein 7.0 Albumin 3.6 RPR Non-reactive Blood Type O Positive Antibody Screen Negative OB - PN A/P Time Spent With Patient Time: Total time spent is greater than 50% in coordination of care (as documented) at patient's floor/unit and/or counseling patient:
[2023-02-04] MEDS: ONDANSETRON INJ 4 MG/2 ML VIAL IV PUSH (23:13)
--- NOTE | 2023-02-04 23:30 | PM.OBPNVD ---
OB - PN: Subj Subjective Date/time seen: 02/04/23 23:30 Interval history: FHT 145, Cat 2, C/C/0 patient has been pushing with good effort for two hours, there has been no change in station, large caput, OP. She has been informed of recommendation for primary section for failure to progress. Discussed risk of and benefits and risk of continuing. Questions answered. She agrees to section. OB - PN: Obj Data Labs 02/03/23 21:21 02/04/23 08:44 Labs: Laboratory Results - last 24 hr 02/03/23 02/04/23 21:21 08:44 Sodium 134 L Potassium 4.1 Chloride 108 H Carbon Dioxide 23 Anion Gap 3 L BUN 9 Creatinine 0.60 L Estim Creat Clear Calc 117 Estimated GFR > 60 Glucose 82 Uric Acid 4.8 Calcium 8.3 L Total Bilirubin 0.4 AST 21 ALT 17 Alkaline Phosphatase 163 H Total Protein 7.0 Albumin 3.6 RPR Non-reactive OB - PN A/P Time Spent With Patient Time: Total time spent is greater than 50% in coordination of care (as documented) at patient's floor/unit and/or counseling patient:
--- NOTE | 2023-02-04 23:42 | W.PM.PROC2 ---
Procedure Note - Detailed Date of Procedure 02/05/23 Pre-op Diagnosis Failure to descend Post-op Diagnosis Same Procedure Performed Primary low transverse section Surgeon Rosalio Tomlinson MD Anesthesia Epidural Indications Patient admitted for [facility] on 02/03/23 with cervidil. Cervidil removed the morning of 02/04- she was 2cm dilated. AROM performed with thick meconium. She had repetitive moderate variables and IUPC placed and amnioinfusion started. Variables improved. She continued to have cervical change. Epidural was placed on request. She was 9 cm at approximately 1645. She progressed to complete/0 station. She pushed with good effort for two hours. No change in station, large caput, OP presentation. She was recommended for section for failure to progress/descend. Findings male , loose nuchal cord, OP position, meconium fluid, peds available Description of Procedure After informed consent, risks and benefits of the procedure was discussed with the patient. The patient was taken to the operating room where she was placed in the dorsal lithotomy position with leftward tilt. After the prior placed epidural anesthesia was found to be adequate, she was then prepped and draped in the usual sterile fashion. A Pfannenstiel skin incision was made with a scalpel and carried through to the underlying layer of fascia. There were multiple large subcutaneous vessels that neeeded cauterized. The fascia was then nicked in the midline, extending bilaterally. The fascia was dissected off the rectus muscles bluntly and sharply, superiorly and inferiorly. The rectus muscles were in the midline, and peritoneum was identified and entered bluntly. The pelvic organs were visualized. The bladder blade was then inserted. The vesicouterine peritoneum was identified and entered sharply with Metzenbaum scissors and extended bilaterally and then the bladder flap was created digitally. The low transverse uterine incision was then made with the scalpel and extended with bilateral index fingers in a crescent-shaped fashion. The head was delivered, loose nuchal cord manually reduced, and the rest of the infant was delivered. The nose and mouth suctioned while the cord was doubly clamped and cut. The infant was then handed off to the awaiting pediatric/nursery staff. The placenta was then delivered manually. The uterine cavity was sponge curretted. The uterus was then exteriorized. The uterine incision was then closed with 0 vicryl in a running locked fashion. A second layer of 0 vicryl was used in an imbricating fashion for hemostasis. Posterior cul de sac was irrigated. The uterus was then returned to the abdomen. Bilateral gutters were cleared of all clots and debris. The uterine incision was noted to be hemostatic. Interceed placed on uterine incision and vertically on front of uterus. The muscle bellies were inspected and noted to be hemostatic. The subfascial layer was noted to be hemostatic, and the fascia was closed with 0 Vicryl in a running fashion x 2 sutures. The subcutaneous layer was then closed with 3-0 Vicryl in a subcutaneous fashion. The skin was closed with Ensorb janny. Skin dermabond applied at incision. All instruments, needle, and lap counts were correct x3. The patient was taken to the recovery room in stable condition. Estimated Blood Loss 1,265 Urine Output 100 Drains No Packing No Pathology Yes (placenta and cord ) Complications No immediate complications Condition Stable Disposition Floor [facility] Billing Surgery - Charge Forward: Surgery Billing
[2023-02-04] MEDS: ceFAZolin 2 GM/D5W 50 ML 2 GM/50 ML BAG IVPB (23:54)
[2023-02-05] VITALS (46 sets, daily range): BP systolic 105–147; BP diastolic 68–90; PULSE 77–101; RESP 14–18; TEMP 36.3–37.7; O2SAT 94–99
[2023-02-05] MEDS: AZITHROMYCIN 500 MG/NS 250 ML 500 MG/250 ML BAG 250 MG IVPB (00:05)
[2023-02-05] MEDS: KETOROLAC 30 MG/ML VIAL (*BKC) IV PUSH ×2 (00:45→07:23)
[2023-02-05] MEDS: OXYTOCIN 30 UNITS/NS 500 ML 30 UNITS/500 ML BAG 125 UNITS IV CONT (03:12)
--- NOTE | 2023-02-05 03:15 | SUR.PHASEI ---
0315: PT taken to nursery to visit .
[2023-02-05] MEDS: DEXTROSE 5%/0.45% SOD CHL 1,000 ML 125 ML IV CONT (07:23)
[2023-02-05] MEDS: IBUPROFEN 600 MG TABLET PO (14:18)
[2023-02-05] MEDS: HYDROcodone/acetaminophen (*CRX) 5-325 MG TABLET 1 TAB PO ×2 (14:18→18:59)
[2023-02-05] MEDS: SERTRALINE HCL 50 MG TABLET PO (14:19)
[2023-02-05] MEDS: diphenhydrAMINE HCl INJ 50 MG/ML VIAL 25 MG IV PUSH (14:19)
[2023-02-05] MEDS: DOCUSATE SODIUM 100 MG CAPSULE PO (19:00)
[2023-02-06] MEDS: IBUPROFEN 600 MG TABLET PO ×4 (01:11→21:27)
[2023-02-06] MEDS: HYDROcodone/acetaminophen (*CRX) 5-325 MG TABLET 1 TAB PO ×6 (01:11→21:27)
[2023-02-06 02:06] VITALS: BP 125/79
[2023-02-06 05:15] LABS: Basophils Absolute Auto 0.1 K/mm3 (0.0-0.1); Basophils Percent Auto 0.3 % (0.2-1.2); Eosinophils Absolute Auto 0.2 K/mm3 (0-0.3); Eosinophils Percent Auto 1.2 % (0-4.4); Hematocrit 29.5 % (37.0-47.0); Hemoglobin 9.3 g/dL (12.0-15.0); Immature Granulocyte Percent A 0.7 % (0-0.5); Lymphocytes Absolute Auto 1.69 K/mm3 (0.9-3.2); Lymphocytes Percent Auto 11.3 % (18.3-44.2); Mean Corpuscular HGB Conc 31.5 g/dl (32-36); Mean Corpuscular Hemoglobin 27.2 pg (26-34); Mean Corpuscular Volume 86.3 fl (80-100); Monocytes Absolute Auto 0.8 K/mm3 (0.1-0.6); Monocytes Percent Auto 5.1 % (2.6-8.5); Neutrophils Absolute Auto 12.2 K/mm3 (1.3-6.7); Neutrophils Percent Auto 81.4 % (45.5-73.1); Platelet Count Result 218 k/mm3 (150-375); Red Blood Count 3.42 M/mm3 (4.2-5.4); Red Cell Distribution Width 14.8 % (11.5-14.5)
[2023-02-06 05:35] VITALS: BP 121/79
[2023-02-06 07:45] VITALS: BP 132/83; PULSE 90; RESP 16; TEMP 36.8; O2SAT 99
[2023-02-06] MEDS: SERTRALINE HCL 50 MG TABLET PO (08:05)
[2023-02-06] MEDS: POLYSACCHARIDE IRON COMPLEX 150 MG CAPSULE PO ×2 (08:05→16:46)
[2023-02-06] MEDS: MULTIVIT/MIN/PREN/FOL AC/IRON TABLET 1 TAB PO (08:05)
[2023-02-06] MEDS: DOCUSATE SODIUM 100 MG CAPSULE PO ×2 (08:06→16:46)
[2023-02-06 11:16] VITALS: BP 131/83; PULSE 84; RESP 16; TEMP 37.1; O2SAT 97
--- NOTE | 2023-02-06 14:04 | WPDANLDPN2 ---
Anes-Prog Note L&D Date/Time: 02/06/23 14:04 Comfortable throughout: labor and section Neuraxial method: epidural Epidural/Spinal procedure site: clean & non-tender Neuro status: Neuro function grossly intact. Cardiovascular status: normal Respiratory status: normal Airway patency: baseline Mental status: baseline Post-Op hydration status: normal Vital Signs: Last Vital Signs Temp 37.1 C 02/06/23 11:16 Pulse 84 02/06/23 11:16 Resp 16 02/06/23 11:16 BP 131/83 02/06/23 11:16 Pulse Ox 97 02/06/23 11:16 O2 Del Method Room Air 02/06/23 08:10 Pain score (VAS): 3/10 I/O: Intake & Output 02/05/23 02/06/23 02/06/23 23:59 07:59 15:59 Intake Total 0 700 500 Output Total 400 400 500 Balance -400 300 0 Post-procedural complaints: none Patient feedback: Patient satisfied with anesthetic care.
--- NOTE | 2023-02-06 14:07 | WPDANLDNPN2 ---
Anes-Prog Note L&D-Neuraxial Date/Time: 02/06/23 14:07 Neuraxial medications: epidural PF morphine Opiod-related complaints: none Patient feedback: Patient satisfied with post-operative pain management.
[2023-02-06 15:15] VITALS: BP 137/93; PULSE 85; RESP 16; TEMP 36.6; O2SAT 98
[2023-02-06 21:10] VITALS: BP 151/90; PULSE 93; RESP 16; TEMP 37.1; O2SAT 96
--- NOTE | 2023-02-07 02:10 | PC.NURSE ---
During meditech downtime, this patient received 5mg [place] PO at 0210 on 02/07/23 for a pain level of 5 at her incision. At 0300, her pain level was 2.
[2023-02-07 04:30] VITALS: BP 145/99
--- NOTE | 2023-02-07 08:19 | PM.OBPNVD ---
OB - PN: Subj Subjective Date/time seen: 02/06/23 08:15 Interval history: She denies headache scotomata or right upper quadrant pain. Pain is controlled. Lochia decreasing. No leg pain. No headache. Patient comments: no tolerating diet ([id number]) OB - PN: Obj Data Labs 02/06/23 04:59 02/04/23 08:44 OB - PN A/P Assessment and Plan (1) Delivery by section: Status: Acute Assessment and Plan: Postop day 1 status post primary . Patient doing well. She had labile blood pressures yesterday blood pressures this morning are improved. No preeclamptic symptoms. Will continue to monitor. Routine post care. (2) Mild preeclampsia: Code(s): O14.00 - Mild to moderate pre-eclampsia, unspecified trimester Status: Acute Assessment and Plan: No PH symptoms. Blood pressure is improving. Will continue to monitor. No severe range blood pressures. Time Spent With Patient Time: Total time spent is greater than 50% in coordination of care (as documented) at patient's floor/unit and/or counseling patient: Exam Const: General: comfortable and no acute distress Resp: Effort & Inspection: normal respiratory effort GI: Other: Uterus firm at umbilicus appropriate tender incision intact no drainage Extrem: General: normal to inspection and no calf tenderness Other: 1+ edema bilaterally Psych: Mental Status: mental status grossly normal Affect: normal affect
[2023-02-07 08:25] VITALS: BP 141/93; PULSE 80; RESP 16; TEMP 36.6; O2SAT 97
--- NOTE | 2023-02-07 08:30 | PM.OBPNVD ---
OB - PN: Subj Subjective Date/time seen: 02/07/23 08:30 Interval history: She denies headache scotomata or right upper quadrant pain. Pain is controlled. Lochia decreasing. No leg pain. No headache. She is ambulating. Positive flatus. Lochia decreasing. OB - PN: Obj Data Labs 02/06/23 04:59 02/04/23 08:44 OB - PN A/P Assessment and Plan (1) Delivery by section: Status: Acute Assessment and Plan: She is doing well. Routine post care. (2) hypertension: Code(s): O16.5 - Unspecified maternal hypertension, complicating the puerperium Status: Acute Assessment and Plan: Blood pressures increasing over the past night. No preeclamptic symptoms. Will check labs. Will start an antihypertensive. No signs of severe symptoms. Time Spent With Patient Time: Total time spent is greater than 50% in coordination of care (as documented) at patient's floor/unit and/or counseling patient: Exam Const: General: comfortable and no acute distress Resp: Effort & Inspection: normal respiratory effort GI: Other: Incision intact no drainage fundus at umbilicus firm nontender Neuro: General: deep tendon reflexes 2+ bilaterally Extrem: General: normal to inspection and no calf tenderness Other: 1 to 2+ edema Psych: Mental Status: mental status grossly normal Affect: normal affect
--- NOTE | 2023-02-07 08:33 | PM.OBDSVD ---
DS: Admitting Diagnosis Discharge Date February 08, 2023 Admitting Diagnosis Medical induction of labor DS: Discharge Diagnosis Discharge Diagnosis (1) Failure of descent in labor, delivered, current hospitalization: Code(s): O62.2 - Other uterine inertia Status: Acute (2) Mild preeclampsia: Code(s): O14.00 - Mild to moderate pre-eclampsia, unspecified trimester Status: Acute OB - DS: Summary Hospital Course Hospital Course: Patient was admitted for medical induction of labor this was scheduled for social. Prior to admission she had had turned in her 24 hour urine due to having an episode of elevated blood pressures and the 24 hour urine did show greater than 300 she had diagnosis of mild preeclampsia and had already been scheduled for induction. She had Cervidil and then subsequent Pitocin. She progressed to complete and had failure to descend. Postoperatively her blood pressures did decrease she never had any signs or symptoms of severe preeclampsia. On postop day 1 blood pressures were decreasing she was doing well. On postop day 2 on the morning her blood pressure started increasing. PIH labs were performed. She was started on Procardia. blood pressures improved she was discharged home on postop day 3. OB Procedures : Ultrasound OB Procedures Intrapartum: OB Procedures: : None and Other Peripartum Data Delivery Method: Section Procedures: Procedures Operation Date: 02/04/23 23:30 Actual Procedure Side Surgeon p Section Rosalio Tomlinson MD complications: other ( Increased blood pressures ) Status at Discharge Functional status at discharge: independent ambulation Time Spent with Patient Time attestation: Total time spent providing and/or coordinating discharge services: Exam Const: General: cooperative Orientation/consciousness: oriented to person, oriented to place and oriented to time HENMT: Face/Nose/Sinus: Normal external nose present Eyes: General: appearance normal, both eyes and all related structures Resp: Effort & Inspection: normal respiratory effort GI: Inspection: normal to inspection Skin: General skin exam: normal color Neuro: General: oriented to person, oriented to place and oriented to time Extrem: General: normal to inspection and no calf tenderness Psych: Appearance: grossly normal Mental Status: mental status grossly normal DS: Data Data Completed and Pending Pending studies at discharge: Pending at discharge 02/05/23 00:16 Surgical [PTH] Routine Discharge Plan Discharge Attending physician on discharge: Rosalio Tomlinson Consulting providers: Hollie Jimenez; Trisha Monreal Discharging Clinician: Yuri Abernathy Patient Disposition: Home, Self-Care Activity: as tolerated and pelvic rest Diet: regular Discharge Instructions: Education: Mom and Baby Guide Given to: Mother Follow-Up: Call your delivering provider's office for an appointment to be seen in: 1 Week Mom and baby should come to the [facility] for the follow-up appointment. Appointment Date/Time: February 10, 2023 at 9:00 am What to expect at your follow-up visit: Blood Pressure Check Physical Assessment Call [phone] if you are unable to keep your appointment time. BREAST CARE: * Wear a snug supportive bra. * For engorgement discomfort: Bottle Feeding: * May apply ice packs ABDOMINAL INCISION: (if applicable) * Allow incision to air dry * Do NOT use lotions for powders on your incision * When showering, allow soap and water to run over the incision, but do not wash incision * Change your pad frequently throughout the day * No tub baths until seen by your physician - You may shower ACTIVITY: * Rest as much as possible. * Do not exercise or lift anything heavier than your baby (such as laundry or other childre
[2023-02-07] MEDS: POLYSACCHARIDE IRON COMPLEX 150 MG CAPSULE PO ×2 (08:58→17:38)
[2023-02-07] MEDS: DOCUSATE SODIUM 100 MG CAPSULE PO ×2 (08:58→17:38)
[2023-02-07] MEDS: NIFEdipine 30 MG TAB.ER.24 PO (08:59)
[2023-02-07] MEDS: HYDROcodone/acetaminophen (*CRX) 5-325 MG TABLET 1 TAB PO ×4 (08:59→23:59)
[2023-02-07] MEDS: SERTRALINE HCL 50 MG TABLET PO (08:59)
[2023-02-07] MEDS: MULTIVIT/MIN/PREN/FOL AC/IRON TABLET 1 TAB PO (08:59)
[2023-02-07] MEDS: IBUPROFEN 600 MG TABLET PO ×2 (08:59→17:38)
[2023-02-07 09:15] LABS: Basophils Percent Auto 0.4 % (0.2-1.2); Eosinophils Absolute Auto 0.2 K/mm3 (0-0.3); Eosinophils Percent Auto 1.7 % (0-4.4); Hematocrit 25.5 % (37.0-47.0); Hemoglobin 7.9 g/dL (12.0-15.0); Immature Granulocyte Absolute 0.05 K/mm3 (0.00-0.031); Immature Granulocyte Percent A 0.5 % (0-0.5); Lymphocytes Absolute Auto 1.71 K/mm3 (0.9-3.2); Lymphocytes Percent Auto 17.4 % (18.3-44.2); Mean Corpuscular Hemoglobin 27.2 pg (26-34); Mean Corpuscular Volume 87.9 fl (80-100); Mean Platelet Volume 10.5 fl (7.4-10.4); Monocytes Absolute Auto 0.4 K/mm3 (0.1-0.6); Monocytes Percent Auto 4.4 % (2.6-8.5); Neutrophils Absolute Auto 7.4 K/mm3 (1.3-6.7); Neutrophils Percent Auto 75.6 % (45.5-73.1); Platelet Count Result 197 k/mm3 (150-375); Red Cell Distribution Width 14.8 % (11.5-14.5); White Blood Count 9.8 K/mm3 (4.5-10.0)
[2023-02-07 09:28] LABS: Alanine Aminotransferase 13 U/L (6-35); Albumin Level 2.6 g/dL (3.5-5.1); Alkaline Phosphatase 100 U/L (38-126); Anion Gap 5 mmol/L (8-16); Aspartate Amino Transferase 23 U/L (14-36); Bilirubin,Total 0.2 mg/dL (0.2-1.3); Blood Urea Nitrogen 9 mg/dL (7-17); Calcium 7.5 mg/dL (8.4-10.2); Carbon Dioxide 23 mmol/L (22-30); Chloride 107 mmol/L (98-107); Estimated CRCL calculation 117 ml/min; Estimated Glomerular Filt Rate > 60; Glucose 74 mg/dL (65-110); Potassium 3.8 mmol/L (3.4-5.0); Sodium 135 mmol/L (137-145); Uric Acid 4.7 mg/dL (2.5-7.5)
[2023-02-07 12:10] VITALS: BP 143/97; PULSE 72; RESP 18; TEMP 36.4; O2SAT 96
[2023-02-07 15:50] VITALS: BP 142/91
[2023-02-07 20:35] VITALS: BP 133/83; PULSE 75; RESP 18; TEMP 36.3
[2023-02-08] VITALS: BP 142/97; PULSE 77
[2023-02-08] MEDS: IBUPROFEN 600 MG TABLET PO ×2 (00:02→06:13)
[2023-02-08] MEDS: HYDROcodone/acetaminophen (*CRX) 5-325 MG TABLET 1 TAB PO (06:12)
[2023-02-08 08:01] VITALS: BP 147/97; PULSE 80; RESP 18; TEMP 36.6; O2SAT 98
[2023-02-08] MEDS: MULTIVIT/MIN/PREN/FOL AC/IRON TABLET 1 TAB PO (09:14)
[2023-02-08] MEDS: POLYSACCHARIDE IRON COMPLEX 150 MG CAPSULE PO (09:14)
[2023-02-08] MEDS: SERTRALINE HCL 50 MG TABLET PO (09:15)
[2023-02-08] MEDS: NIFEdipine 30 MG TAB.ER.24 PO (09:15)
[2023-02-08] MEDS: DOCUSATE SODIUM 100 MG CAPSULE PO (09:15)
[2023-02-10 09:20] VITALS: BP 144/91; PULSE 80; RESP 18; TEMP 36.7; O2SAT 100
== END 2023-02-08 11:54 | disposition home or self-care (01) | DRG 788 ==
LOC: ANHOB2 02-08 10:17 → ANHLDR 02-11 08:52 → ANHOB2 02-11 08:52
PROVIDERS: Obstetrics & Gynecology; Admitting Provider Obstetrics & Gynecology; Visit Provider Student in an Organized Health Care Education/Training Program
PROC: 10D00Z1 Extraction of Products of Conception, Low, Open Approach (ICD-10-PCS; CPT 59514; principal; 2023-02-04 23:30)
DX: O14.04 Mild to moderate pre-eclampsia, complicating childbirth (principal); Z37.0 Single live birth; Z3A.39 39 weeks gestation of pregnancy; O69.81X0 Labor and delivery complicated by cord around neck, without compression, not applicable or unspecified; O62.2 Other uterine inertia; O32.4XX0 Maternal care for high head at term, not applicable or unspecified; O36.8330 Maternal care for abnormalities of the fetal heart rate or rhythm, third trimester, not applicable or unspecified; O99.02 Anemia complicating childbirth; D64.9 Anemia, unspecified; O77.0 Labor and delivery complicated by meconium in amniotic fluid
CPT/HCPCS: 36415; 80053; 84550; 85025; 86592; 86850; 86900; 86901; 88307; A9270; J0456; J0690; J1200; J1885; J2175; J2210; J2274; J2371; J2405; J2590; J2795; J7030; J7120

== ENCOUNTER 2025-01-13 12:47 | Outpatient (CLI) | payer BC, SELFPAY ==
--- NOTE | ~2025-01-13 | US_ITS ---
EXAMINATION: US OB <= 14 weeks fetus DATE: 01/14/2025 0:17 CDT INDICATION: Amenorrhea COMPARISON: 04/21/2024 TECHNIQUE: Real-time transabdominal obstetric ultrasound. FINDINGS: 2 para 1 Left menstrual period is given as 11/12/2024 Estimated date of delivery by last Menstrual Period Is 08/19/2025 The uterus measures 10.6 x 5.7 x 7.2 cm. A gestational sac is identified within the uterus. A pole is identified, with a crown-rump length that measures 2.3 cm, corresponding to an approx imate gestational age of 9 weeks and 0 days. cardiac activity is identified at a rate of 176 bpm. The right ovary measures 2.0 x 1.4 x 2.0cm. The left ovary measures 3.3 x 2.2 x 2.8 cm. Estimated date of delivery by ultrasound is 08/18/2025 IMPRESSION: Single intrauterine gestation with an approximate gestational age of 9 weeks and 0 days, with c ardiac activity identified. Reviewed, dictated and finalized at location A. IMPRESSION: Single intrauterine gestation with an approximate gestational age of 9 weeks an d 0 days, with cardiac activity identified.
== END 2025-01-13 12:48 | disposition home or self-care (01) ==
PROVIDERS: PCP Obstetrics & Gynecology; Visit Provider Nurse Practitioner Obstetrics & Gynecology
DX: N91.2 Amenorrhea, unspecified (principal); Z3A.09 9 weeks gestation of pregnancy
CPT/HCPCS: 76801